=== PATIENT | male | born 1935 | race Caucasian/White ===

== ENCOUNTER 2022-05-25 16:50 | Observation (INO) | payer MEDICARE ==
[~2022-05-25] VITALS: Ht 167.6 cm; Wt 49.6 kg
[~2022-05-25 16:50] MED LIST changes: -FLUT1DIS5 INH; -TIOT18 INH
[2022-05-25 17:14] LABS: BASOPHILS ABSOLUTE AUTO 0.04 K/mm3 (0.00-0.23); BASOPHILS PERCENT AUTO 1 % (0-2); EOSINOPHILS PERCENT AUTO 0 % (0-6); Hematocrit 44.9 % (37.0-53.0); Hemoglobin 15.3 g/dL (13.5-17.5); IMMATURE GRAN ABSOLUTE AUTO 0.05 K/mm3 (0.00-0.10); IMMATURE GRAN PERCENT AUTO 1 % (0-1); LYMPHOCYTES ABSOLUTE AUTO 0.39 K/mm3 (0.84-5.20); LYMPHOCYTES PERCENT AUTO 6 % (21-46); MONOCYTES ABSOLUTE AUTO 0.48 K/mm3 (0.16-1.47); MONOCYTES PERCENT AUTO 7 % (4-13); Mean Corpuscular HGB 32.3 pg (26.0-34.0); Mean Corpuscular HGB Conc 34.1 g/dL (31.5-36.5); Mean Corpuscular Volume 95 fL (80-100); Mean Platelet Volume 8.6 fL (9.1-12.4); NEUTROPHILS ABSOLUTE AUTO 5.73 K/mm3 (1.96-9.15); NEUTROPHILS PERCENT AUTO 86 % (41-73); Platelet Count 386 K/mm3 (150-400); RDW Coefficient Variation 12.9 % (11.7-14.2); RDW Standard Deviation 45.7 fL (35.1-46.3); Red Blood Cell Count 4.74 M/mm3 (4.30-5.90); White Blood Cell Count 6.69 K/mm3 (4.00-11.30)
[2022-05-25 17:33] LABS: Albumin, Blood 2.7 g/dL (3.4-5.0); Albumin/Globulin Ratio 0.6 (0.8-1.8); Bilirubin, Total 0.7 mg/dL (0.1-1.0); Bun/Creatinine Ratio 37.7 (12.0-20.0); Calcium, Blood 9.4 mg/dL (8.5-10.1); Creatinine, Blood 0.69 mg/dL (0.60-1.20); Globulin, Blood 4.7 g/dL (2.2-4.0); Potassium, Blood 4.2 mmol/L (3.5-5.5); Total Protein, Blood 7.4 g/dL (6.4-8.2)
[2022-05-25] MEDS ORDERED: TIOT18 INH (23:16)
[2022-05-25] MEDS ORDERED: FLUT1DIS5 INH (23:18)
[2022-05-26 04:57] LABS: BASOPHILS ABSOLUTE AUTO 0.02 K/mm3 (0.00-0.23); BASOPHILS PERCENT AUTO 0 % (0-2); EOSINOPHILS PERCENT AUTO 0 % (0-6); Hemoglobin 13.5 g/dL (13.5-17.5); IMMATURE GRAN ABSOLUTE AUTO 0.03 K/mm3 (0.00-0.10); IMMATURE GRAN PERCENT AUTO 1 % (0-1); LYMPHOCYTES ABSOLUTE AUTO 0.58 K/mm3 (0.84-5.20); LYMPHOCYTES PERCENT AUTO 11 % (21-46); MONOCYTES ABSOLUTE AUTO 0.36 K/mm3 (0.16-1.47); MONOCYTES PERCENT AUTO 7 % (4-13); Mean Corpuscular HGB 31.9 pg (26.0-34.0); Mean Corpuscular HGB Conc 33.8 g/dL (31.5-36.5); Mean Corpuscular Volume 95 fL (80-100); Mean Platelet Volume 9.2 fL (9.1-12.4); NEUTROPHILS ABSOLUTE AUTO 4.56 K/mm3 (1.96-9.15); NEUTROPHILS PERCENT AUTO 82 % (41-73); Platelet Count 387 K/mm3 (150-400); RDW Standard Deviation 44.5 fL (35.1-46.3); Red Blood Cell Count 4.23 M/mm3 (4.30-5.90); White Blood Cell Count 5.55 K/mm3 (4.00-11.30)
--- NOTE | 2022-05-26 05:01 | NUR ---
PT ARRIVED TO UNIT AT 2300, PT ORIENTED TO ROOM AND CALL LIGHT, AXOX4, [place]. 3L NC. PT SLEEPING MOST OF SHIFT
[2022-05-26 17:07] LABS: Albumin, Blood 2.1 g/dL (3.4-5.0); Albumin/Globulin Ratio 0.5 (0.8-1.8); Bilirubin, Total 0.5 mg/dL (0.1-1.0); Bun/Creatinine Ratio 34.8 (12.0-20.0); Calcium, Blood 8.9 mg/dL (8.5-10.1); Creatinine, Blood 0.72 mg/dL (0.60-1.20); Globulin, Blood 4.2 g/dL (2.2-4.0); Potassium, Blood 4.3 mmol/L (3.5-5.5); Total Protein, Blood 6.3 g/dL (6.4-8.2)
--- NOTE | 2022-05-27 05:20 | NUR ---
SHIFT SUMMARY PT SITTING UP IN BED WATCHING TV- PT DENIES PAIN AND REPORTS THAT HIS BREATHING IS GETTING BETTER- PT AMBULATED WITH FWW TO HALLWAY AND BACK- PT SOB- PT RECOVERED WITHING 1 MINUTE OF RETURING TO BED- ABX INFUSED IN THE NIGHT- BED LOW POSITION, CALL LIGHT WITHIN REACH, BED ALARM IN PLACE
[2022-05-27] MEDS ORDERED: AZIT250 PO (14:17)
[2022-05-27] MEDS ORDERED: Prednisone10 MG PO (14:17)
--- NOTE | 2022-05-27 17:40 | NUR ---
PATIENT DISCHARGED TO HOME ACCOMPANIED BY HIS DAUGHTER. IV SALINE LOCK AND TELEMETRY REMOVED WITHOUT INCIDENT. VERBALIZED UNDERSTANDING OF D/C INSTRUCTIONS. NEW [facility] FOUR WHEEL WALKER FOR HOME ALSO DELIVERED TO ROOM PRIOR TO DISCHARGE. HOME O2 EVAL RESULTS SHOWED 2 L/MIN AT REST AND 4 L/MIN WITH ACTIVITY, RESULTS SHARED WITH PATIENT AND DAUGHTER. OFF UNIT VIA W/C AT 1730. NO BELONGINGS LEFT BEHIND IN ROOM.
== END 2022-05-27 17:32 | disposition home or self-care (01) ==
LOC: ER 16:50 → MEDS 16:51
PROVIDERS: Emergency Medicine; Internal Medicine; ADMIT Internal Medicine
DX: J44.1 Chronic obstructive pulmonary disease with (acute) exacerbation (principal); J96.11 Chronic respiratory failure with hypoxia; Z99.81 Dependence on supplemental oxygen; Z79.899 Other long term (current) drug therapy
CPT/HCPCS: 36415; 71045; 71260; 80053; 83605; 83880; 84484; 85025; 85379; 87040; 93005; 93010; 94640; 94664; 94760; 94761; 96365-59; 96366; 96375; 96375-59; 96376; 99285-25; A9270; G0378; J0456; J0696; J2930; J7050; Q9967

== ENCOUNTER → 2022-05-25 | Outpatient (CLI) | payer MEDICARE ==
[~2022-05-25] MED LIST: ALBU90OI INH; FLUT1DIS5 INH; TIOT18 INH
[2022-05-25 15:00] LABS: BASOPHILS ABSOLUTE AUTO 0.05 K/mm3 (0.00-0.23); BASOPHILS PERCENT AUTO 1 % (0-2); EOSINOPHILS ABSOLUTE AUTO 0.01 K/mm3 (0.00-0.68); EOSINOPHILS PERCENT AUTO 0 % (0-6); Hematocrit 44.2 % (37.0-53.0); Hemoglobin 15.1 g/dL (13.5-17.5); IMMATURE GRAN ABSOLUTE AUTO 0.05 K/mm3 (0.00-0.10); IMMATURE GRAN PERCENT AUTO 1 % (0-1); LYMPHOCYTES ABSOLUTE AUTO 0.59 K/mm3 (0.84-5.20); LYMPHOCYTES PERCENT AUTO 7 % (21-46); MONOCYTES ABSOLUTE AUTO 1.28 K/mm3 (0.16-1.47); MONOCYTES PERCENT AUTO 16 % (4-13); Mean Corpuscular HGB 32.3 pg (26.0-34.0); Mean Corpuscular HGB Conc 34.2 g/dL (31.5-36.5); Mean Corpuscular Volume 94 fL (80-100); Mean Platelet Volume 8.8 fL (9.1-12.4); NEUTROPHILS PERCENT AUTO 76 % (41-73); Platelet Count 371 K/mm3 (150-400); RDW Standard Deviation 44.7 fL (35.1-46.3); Red Blood Cell Count 4.68 M/mm3 (4.30-5.90); White Blood Cell Count 8.18 K/mm3 (4.00-11.30)
[2022-05-25 15:10] LABS: Albumin, Blood 2.8 g/dL (3.4-5.0); Albumin/Globulin Ratio 0.6 (0.8-1.8); Bilirubin, Total 0.7 mg/dL (0.1-1.0); Bun/Creatinine Ratio 28.3 (12.0-20.0); Calcium, Blood 9.8 mg/dL (8.5-10.1); Creatinine, Blood 0.99 mg/dL (0.60-1.20); Globulin, Blood 4.8 g/dL (2.2-4.0); Potassium, Blood 4.2 mmol/L (3.5-5.5); Total Protein, Blood 7.6 g/dL (6.4-8.2)
== END | disposition home or self-care (01) ==
LOC: LAB SHORT 14:51
PROVIDERS: Chiropractor
DX: R06.00 Dyspnea, unspecified (principal)
CPT/HCPCS: 80053; 84484; 85025; 85379

== ENCOUNTER 2022-12-06 14:17 | Emergency (ER) | payer MEDICARE ==
[~2022-12-06] VITALS: Ht 170.2 cm; Wt 48.1 kg
[~2022-12-06 14:17] MED LIST changes: +AZIT250 PO; +FLUT1DIS5 INH; +Prednisone10 MG PO; +TIOT18 INH
[2022-12-06 15:56] LABS: Influenza A, PCR NEGATIVE (NEGATIVE); Influenza B, PCR NEGATIVE (NEGATIVE); Resp Syncytial Virus, PCR NEGATIVE (NEGATIVE); SARS-Cov-2 (COVID-19) PCR, MMC NEGATIVE (NEGATIVE)
[2022-12-06 16:15] LABS: BASOPHILS ABSOLUTE AUTO 0.06 K/mm3 (0.00-0.23); BASOPHILS PERCENT AUTO 1 % (0-2); EOSINOPHILS ABSOLUTE AUTO 0.17 K/mm3 (0.00-0.68); EOSINOPHILS PERCENT AUTO 2 % (0-6); IMMATURE GRAN ABSOLUTE AUTO 0.02 K/mm3 (0.00-0.10); IMMATURE GRAN PERCENT AUTO 0 % (0-1); LYMPHOCYTES ABSOLUTE AUTO 1.74 K/mm3 (0.84-5.20); LYMPHOCYTES PERCENT AUTO 17 % (21-46); MONOCYTES PERCENT AUTO 6 % (4-13); Mean Corpuscular HGB Conc 32.5 g/dL (31.5-36.5); Mean Corpuscular Volume 86 fL (80-100); Mean Platelet Volume 8.6 fL (9.1-12.4); NEUTROPHILS PERCENT AUTO 74 % (41-73); Platelet Count 438 K/mm3 (150-400); RDW Coefficient Variation 15.2 % (11.7-14.2); RDW Standard Deviation 47.2 fL (35.1-46.3); Red Blood Cell Count 4.64 M/mm3 (4.30-5.90); White Blood Cell Count 9.99 K/mm3 (4.00-11.30)
[2022-12-06 16:36] LABS: Albumin, Blood 3.1 g/dL (3.4-5.0); Albumin/Globulin Ratio 0.7 (0.8-1.8); Bilirubin, Total 0.4 mg/dL (0.1-1.0); Bun/Creatinine Ratio 17.6 (12.0-20.0); Calcium, Blood 9.3 mg/dL (8.5-10.1); Creatinine, Blood 0.68 mg/dL (0.60-1.20); Globulin, Blood 4.4 g/dL (2.2-4.0); Potassium, Blood 4.8 mmol/L (3.5-5.5); Total Protein, Blood 7.5 g/dL (6.4-8.2)
[2022-12-06 19:14] LABS: Magnesium, Blood 2.2 mg/dL (1.6-2.4); Phosphorus, Blood 3.1 mg/dL (2.5-4.9)
[2022-12-06 20:45] VITALS: BP 147/97
[2022-12-06] MEDS ORDERED: Doxycycline Mo100 M1 PO (21:41)
[2022-12-06] MEDS ORDERED: AMOCLA875 PO (21:41)
== END 2022-12-06 22:51 | disposition home or self-care (01) ==
LOC: ER 14:17
PROVIDERS: Emergency Medicine; Physician Assistant
DX: J21.9 Acute bronchiolitis, unspecified (principal); J44.0 Chronic obstructive pulmonary disease with (acute) lower respiratory infection; Z87.891 Personal history of nicotine dependence; Z20.822 Contact with and (suspected) exposure to COVID-19
CPT/HCPCS: 0241U; 71046; 71260; 80053; 83735; 83880; 84100; 84145; 84484; 85025; 85379; 93005; 93010; 94640; 94664; 99284-25; A9270; Q9967

== ENCOUNTER 2023-01-01 14:34 | Emergency (ER) | payer MEDICARE ==
[~2023-01-01] VITALS: Ht 170.2 cm; Wt 48.1 kg
[~2023-01-01 14:34] MED LIST changes: +AMOCLA875 PO; +Doxycycline Mo100 M1 PO
[2023-01-01 15:20] LABS: BASOPHILS ABSOLUTE AUTO 0.07 K/mm3 (0.00-0.23); BASOPHILS PERCENT AUTO 1 % (0-2); EOSINOPHILS ABSOLUTE AUTO 0.16 K/mm3 (0.00-0.68); EOSINOPHILS PERCENT AUTO 2 % (0-6); Hematocrit 39.7 % (37.0-53.0); Hemoglobin 12.3 g/dL (13.5-17.5); IMMATURE GRAN ABSOLUTE AUTO 0.06 K/mm3 (0.00-0.10); IMMATURE GRAN PERCENT AUTO 1 % (0-1); LYMPHOCYTES ABSOLUTE AUTO 2.03 K/mm3 (0.84-5.20); LYMPHOCYTES PERCENT AUTO 20 % (21-46); MONOCYTES ABSOLUTE AUTO 0.66 K/mm3 (0.16-1.47); MONOCYTES PERCENT AUTO 7 % (4-13); Mean Corpuscular HGB 27.5 pg (26.0-34.0); Mean Corpuscular Volume 89 fL (80-100); NEUTROPHILS ABSOLUTE AUTO 7.01 K/mm3 (1.96-9.15); NEUTROPHILS PERCENT AUTO 70 % (41-73); RDW Coefficient Variation 15.9 % (11.7-14.2); RDW Standard Deviation 51.5 fL (35.1-46.3); Red Blood Cell Count 4.48 M/mm3 (4.30-5.90); White Blood Cell Count 9.99 K/mm3 (4.00-11.30)
[2023-01-01 15:40] LABS: Albumin, Blood 2.2 g/dL (3.4-5.0); Albumin/Globulin Ratio 0.5 (0.8-1.8); Bilirubin, Total 0.4 mg/dL (0.1-1.0); Bun/Creatinine Ratio 21.5 (12.0-20.0); Calcium, Blood 8.5 mg/dL (8.5-10.1); Creatinine, Blood 0.65 mg/dL (0.60-1.20); Globulin, Blood 4.4 g/dL (2.2-4.0); Potassium, Blood 5.1 mmol/L (3.5-5.5); Total Protein, Blood 6.6 g/dL (6.4-8.2)
[2023-01-01 15:48] LABS: Mean Platelet Volume 9.5 fL (9.1-12.4); Platelet Count 324 K/mm3 (150-400)
[2023-01-01 17:56] LABS: Source, Urine Foley catheter
[2023-01-01 18:02] LABS: Appearance, Urine Cloudy (Clear); Bilirubin, Urine Neg (Neg); Blood, Urine 5+ (Neg); Color, Urine Yellow (P-Yellow); Glucose Qualitative, Urine Neg (Neg); Ketones, Urine Neg (Neg); Leukocyte Esterase, Urine 3+ (Neg); Nitrite, Urine Pos (Neg); Protein, Urine 2+ (Neg); Urobilinogen, Urine NORM (Normal)
[2023-01-01 18:08] LABS: Amorphous Light (0-Heavy); Bacteria Many /hpf; Hyaline Casts 0-2 /lpf (0-2); Squamous Epithelial Cells Not Seen /hpf (Few)
[2023-01-01] MEDS ORDERED: CEFD300 PO (18:22)
[2023-01-01 19:30] VITALS: BP 145/99
== END 2023-01-01 20:00 | disposition home or self-care (01) ==
LOC: ER 14:34
PROVIDERS: Emergency Medicine
DX: N39.0 Urinary tract infection, site not specified (principal); J44.9 Chronic obstructive pulmonary disease, unspecified; Z79.899 Other long term (current) drug therapy; Z87.891 Personal history of nicotine dependence; Z96.0 Presence of urogenital implants; Z99.81 Dependence on supplemental oxygen
CPT/HCPCS: 51702; 71046; 80053; 81001; 83880; 84484; 85025; 87077; 87086; 87186; 93005; 93010; 96365; 99285-25; J0696

== ENCOUNTER → 2023-02-12 | Outpatient (CLI) | payer MEDICARE ==
[~2023-02-12] MED LIST changes: +CEFD300 PO; +CEFP200 PO; +DIGOX125 MC1 PO; +FLUTICASONE-SA1 EA10 INH; +LEVO750 PO; +METO25ER PO; +TAMS.4ER PO
[2023-02-12 18:02] LABS: BASOPHILS ABSOLUTE AUTO 0.05 K/mm3 (0.00-0.23); BASOPHILS PERCENT AUTO 1 % (0-2); EOSINOPHILS ABSOLUTE AUTO 0.13 K/mm3 (0.00-0.68); EOSINOPHILS PERCENT AUTO 1 % (0-6); Hematocrit 38.7 % (37.0-53.0); Hemoglobin 12.4 g/dL (13.5-17.5); IMMATURE GRAN ABSOLUTE AUTO 0.05 K/mm3 (0.00-0.10); IMMATURE GRAN PERCENT AUTO 1 % (0-1); LYMPHOCYTES ABSOLUTE AUTO 1.62 K/mm3 (0.84-5.20); LYMPHOCYTES PERCENT AUTO 18 % (21-46); MONOCYTES ABSOLUTE AUTO 0.69 K/mm3 (0.16-1.47); MONOCYTES PERCENT AUTO 8 % (4-13); Mean Corpuscular HGB 27.8 pg (26.0-34.0); Mean Corpuscular Volume 87 fL (80-100); Mean Platelet Volume 8.8 fL (9.1-12.4); NEUTROPHILS ABSOLUTE AUTO 6.61 K/mm3 (1.96-9.15); NEUTROPHILS PERCENT AUTO 72 % (41-73); Platelet Count 363 K/mm3 (150-400); RDW Standard Deviation 53.7 fL (35.1-46.3); Red Blood Cell Count 4.46 M/mm3 (4.30-5.90); White Blood Cell Count 9.15 K/mm3 (4.00-11.30)
[2023-02-12 18:38] LABS: Albumin, Blood 2.7 g/dL (3.4-5.0); Albumin/Globulin Ratio 0.7 (0.8-1.8); Bilirubin, Total 0.4 mg/dL (0.1-1.0); Bun/Creatinine Ratio 16.1 (12.0-20.0); Calcium, Blood 8.5 mg/dL (8.5-10.1); Creatinine, Blood 0.81 mg/dL (0.60-1.20); Globulin, Blood 4.1 g/dL (2.2-4.0); Potassium, Blood 4.2 mmol/L (3.5-5.5); Total Protein, Blood 6.8 g/dL (6.4-8.2)
== END ==
LOC: LAB SHORT 16:45 → LAB 16:45
PROVIDERS: Emergency Medicine
DX: N39.0 Urinary tract infection, site not specified (principal); R31.9 Hematuria, unspecified
CPT/HCPCS: 80053; 85025; 87086

== ENCOUNTER 2023-02-14 13:24 | Emergency (ER) | payer MEDICARE ==
[~2023-02-14] VITALS: Ht 167.6 cm; Wt 65.8 kg
[~2023-02-14 13:24] MED LIST changes: -CEFP200 PO
[2023-02-14 13:31] VITALS: BP 152/81
[2023-02-14 14:33] LABS: Source, Urine Foley catheter
[2023-02-14 14:36] LABS: Appearance, Urine Cloudy (Clear); Bilirubin, Urine Neg (Neg); Blood, Urine 3+ (Neg); Color, Urine Yellow (P-Yellow); Glucose Qualitative, Urine Neg (Neg); Ketones, Urine Neg (Neg); Leukocyte Esterase, Urine 3+ (Neg); Nitrite, Urine Neg (Neg); Protein, Urine 2+ (Neg); Specific Gravity, Urine 1.015 (1.003-1.022); Urobilinogen, Urine NORM (Normal)
[2023-02-14 15:14] LABS: White Blood Cells, Urine TNTC /hpf (0-5); Yeast/Fungi Urine Few /hpf
[2023-02-14 15:15] LABS: Bacteria Many /hpf; Squamous Epithelial Cells Not Seen /hpf (Few)
[2023-02-14] MEDS ORDERED: CEFP200 PO (15:47)
== END 2023-02-14 16:06 | disposition home or self-care (01) ==
LOC: ER 13:24
PROVIDERS: Student in an Organized Health Care Education/Training Program
DX: T83.518A Infection and inflammatory reaction due to other urinary catheter, initial encounter (principal); N39.0 Urinary tract infection, site not specified; Y73.2 Prosthetic and other implants, materials and accessory gastroenterology and urology devices associated with adverse incidents; J44.9 Chronic obstructive pulmonary disease, unspecified; Z87.891 Personal history of nicotine dependence; Z79.51 Long term (current) use of inhaled steroids; Z79.52 Long term (current) use of systemic steroids; Z79.899 Other long term (current) drug therapy
CPT/HCPCS: 51702; 51798; 81001; 87086; 99283-25

== ENCOUNTER 2024-01-12 16:40 | Emergency (ER) | payer MEDICARE ==
[~2024-01-12] VITALS: Ht 170.2 cm; Wt 51.7 kg
[~2024-01-12 16:40] MED LIST changes: +CEFP200 PO
[2024-01-12] MEDS ORDERED: Ipratropium/Albuterol SulF 2.5-0.5MG/3 ML Amp INH ONE (17:40)
[2024-01-12] MEDS ORDERED: MethylPREDNISolone Sod Succ 125 MG Vial IV ONE (17:40)
[2024-01-12 18:02] LABS: BASOPHILS ABSOLUTE AUTO 0.08 K/mm3 (0.00-0.23); BASOPHILS PERCENT AUTO 1 % (0-2); EOSINOPHILS ABSOLUTE AUTO 0.07 K/mm3 (0.00-0.68); EOSINOPHILS PERCENT AUTO 1 % (0-6); Hematocrit 39.6 % (37.0-53.0); Hemoglobin 12.6 g/dL (13.5-17.5); IMMATURE GRAN ABSOLUTE AUTO 0.07 K/mm3 (0.00-0.10); IMMATURE GRAN PERCENT AUTO 1 % (0-1); LYMPHOCYTES ABSOLUTE AUTO 4.64 K/mm3 (0.84-5.20); LYMPHOCYTES PERCENT AUTO 31 % (21-46); MONOCYTES ABSOLUTE AUTO 0.86 K/mm3 (0.16-1.47); MONOCYTES PERCENT AUTO 6 % (4-13); Mean Corpuscular HGB 27.4 pg (26.0-34.0); Mean Corpuscular HGB Conc 31.8 g/dL (31.5-36.5); Mean Corpuscular Volume 86 fL (80-100); Mean Platelet Volume 8.6 fL (9.1-12.4); NEUTROPHILS ABSOLUTE AUTO 9.18 K/mm3 (1.96-9.15); NEUTROPHILS PERCENT AUTO 62 % (41-73); Platelet Count 492 K/mm3 (150-400); RDW Coefficient Variation 15.3 % (11.7-14.2); RDW Standard Deviation 48.5 fL (35.1-46.3)
[2024-01-12 18:20] LABS: Albumin, Blood 2.8 g/dL (3.4-5.0); Albumin/Globulin Ratio 0.7 (0.8-1.8); Bilirubin, Total 0.3 mg/dL (0.1-1.0); Bun/Creatinine Ratio 17.2 (12.0-20.0); Calcium, Blood 8.6 mg/dL (8.5-10.1); Creatinine, Blood 0.76 mg/dL (0.60-1.20); Globulin, Blood 4.1 g/dL (2.2-4.0); Total Protein, Blood 6.9 g/dL (6.4-8.2)
[2024-01-12 19:09] LABS: Source, Urine Clean Catch
[2024-01-12 19:14] LABS: Appearance, Urine Hazy (Clear); Bilirubin, Urine Neg (Neg); Blood, Urine 3+ (Neg); Color, Urine Yellow (P-Yellow); Glucose Qualitative, Urine Neg (Neg); Ketones, Urine Neg (Neg); Leukocyte Esterase, Urine 3+ (Neg); Nitrite, Urine Pos (Neg); Protein, Urine 2+ (Neg); Specific Gravity, Urine 1.015 (1.003-1.022); Urobilinogen, Urine NORM (Normal); pH, Urine 6.5 (5.0-8.0)
[2024-01-12 19:25] LABS: Amorphous Light (0-Heavy); Bacteria Many /hpf; Squamous Epithelial Cells Few /hpf (Few); White Blood Cells, Urine 25-50 /hpf (0-5)
[2024-01-12] MEDS ORDERED: CefTRIAXone Sodium 1,000 MG in NS 100 ML IV ONE (21:15)
[2024-01-12] MEDS ORDERED: Azithromycin 250 MG Tab PO ONE (21:20)
[2024-01-12 22:00] VITALS: BP 138/74
[2024-01-12] MEDS ORDERED: AMOCLA875 PO (22:12)
[2024-01-12] MEDS ORDERED: AZIT250 PO (22:12)
[2024-01-12] MEDS ORDERED: LEVAQUIN750 MG PO (22:26)
== END 2024-01-12 22:40 | disposition home or self-care (01) ==
LOC: ER 16:40
PROVIDERS: Student in an Organized Health Care Education/Training Program
DX: J18.9 Pneumonia, unspecified organism (principal); J44.9 Chronic obstructive pulmonary disease, unspecified; Z87.891 Personal history of nicotine dependence; Z79.51 Long term (current) use of inhaled steroids; Z79.899 Other long term (current) drug therapy; Z79.52 Long term (current) use of systemic steroids
CPT/HCPCS: 71046; 71260; 80053; 81001; 83880; 84484; 85025; 85379; 93005; 93010; 94640; 94664; 96374; 96375; 99285-25; A9270; J0696; J2919; Q9967

== ENCOUNTER 2024-02-23 16:29 | Inpatient (IN) | payer MEDICARE ==
[~2024-02-23] VITALS: Ht 170.2 cm; Wt 49.8 kg
[~2024-02-23 16:29] MED LIST changes: +LEVAQUIN750 MG PO
[2024-02-23] MEDS ORDERED: PRED5 PO (17:34)
[2024-02-23] MEDS ORDERED: TIOT18 INH (17:36)
[2024-02-23] MEDS ORDERED: FLUT1DIS8 (17:36)
[2024-02-23 18:00] LABS: BASOPHILS ABSOLUTE AUTO 0.08 K/mm3 (0.00-0.23); BASOPHILS PERCENT AUTO 1 % (0-2); EOSINOPHILS ABSOLUTE AUTO 0.18 K/mm3 (0.00-0.68); EOSINOPHILS PERCENT AUTO 1 % (0-6); Hematocrit 39.1 % (37.0-53.0); Hemoglobin 12.3 g/dL (13.5-17.5); IMMATURE GRAN ABSOLUTE AUTO 0.04 K/mm3 (0.00-0.10); IMMATURE GRAN PERCENT AUTO 0 % (0-1); LYMPHOCYTES ABSOLUTE AUTO 2.53 K/mm3 (0.84-5.20); LYMPHOCYTES PERCENT AUTO 19 % (21-46); MONOCYTES PERCENT AUTO 4 % (4-13); Mean Corpuscular HGB 27.6 pg (26.0-34.0); Mean Corpuscular HGB Conc 31.5 g/dL (31.5-36.5); Mean Corpuscular Volume 88 fL (80-100); Mean Platelet Volume 8.1 fL (9.1-12.4); NEUTROPHILS ABSOLUTE AUTO 10.26 K/mm3 (1.96-9.15); NEUTROPHILS PERCENT AUTO 75 % (41-73); Platelet Count 532 K/mm3 (150-400); RDW Coefficient Variation 15.2 % (11.7-14.2); RDW Standard Deviation 48.4 fL (35.1-46.3); Red Blood Cell Count 4.46 M/mm3 (4.30-5.90); White Blood Cell Count 13.69 K/mm3 (4.00-11.30)
[2024-02-23 18:25] LABS: Albumin, Blood 2.5 g/dL (3.4-5.0); Albumin/Globulin Ratio 0.6 (0.8-1.8); Bilirubin, Total 0.3 mg/dL (0.1-1.0); Bun/Creatinine Ratio 19.5 (12.0-20.0); Calcium, Blood 8.5 mg/dL (8.5-10.1); Creatinine, Blood 0.72 mg/dL (0.60-1.20); Globulin, Blood 4.3 g/dL (2.2-4.0); Potassium, Blood 3.7 mmol/L (3.5-5.5); Total Protein, Blood 6.8 g/dL (6.4-8.2)
[2024-02-23] MEDS ORDERED: Ipratropium/Albuterol SulF 2.5-0.5MG/3 ML Amp INH ONE (19:10)
[2024-02-23] MEDS ORDERED: MethylPREDNISolone Sod Succ 125 MG Vial IV ONE (19:15)
[2024-02-23] MEDS ORDERED: Azithromycin 500 MG in NS 250 ML IV SCH (20:30)
[2024-02-23] MEDS ORDERED: Ondansetron HCl 2 MG / ML 2ML Vial IV PRN (20:55)
[2024-02-23] MEDS ORDERED: Ipratropium/Albuterol SulF 2.5-0.5MG/3 ML Amp INH SCH (20:55)
[2024-02-23] MEDS ORDERED: Albuterol 2.5 MG/3 ML VIAL INH PRN (21:00)
[2024-02-23] MEDS ORDERED: FLU VACC TS2024-25(6MOS UP)/PF 45 MCG/0.5 ML SYRINGE IM SCH (21:00)
[2024-02-23 21:50] LABS: PCO2 Venous 43.7 mmHg (38-42); pH Blood Venous 7.38 (7.34-7.37)
[2024-02-23 21:51] LABS: Base Excess Venous 0.8 mmol/L; Bicarbonate Venous 24.6 mmol/L (24.0-30.0)
[2024-02-23 22:57] VITALS: BP 120/94
[2024-02-24] MEDS ORDERED: MethylPREDNISolone Sod Succ 125 MG Vial IV SCH
[2024-02-24 04:25] VITALS: BP 141/87
[2024-02-24 04:51] LABS: BASOPHILS ABSOLUTE AUTO 0.01 K/mm3 (0.00-0.23); BASOPHILS PERCENT AUTO 0 % (0-2); EOSINOPHILS PERCENT AUTO 0 % (0-6); Hematocrit 35.5 % (37.0-53.0); Hemoglobin 11.5 g/dL (13.5-17.5); IMMATURE GRAN ABSOLUTE AUTO 0.04 K/mm3 (0.00-0.10); IMMATURE GRAN PERCENT AUTO 1 % (0-1); LYMPHOCYTES PERCENT AUTO 13 % (21-46); MONOCYTES ABSOLUTE AUTO 0.07 K/mm3 (0.16-1.47); MONOCYTES PERCENT AUTO 1 % (4-13); Mean Corpuscular HGB 27.8 pg (26.0-34.0); Mean Corpuscular HGB Conc 32.4 g/dL (31.5-36.5); Mean Corpuscular Volume 86 fL (80-100); Mean Platelet Volume 8.3 fL (9.1-12.4); NEUTROPHILS ABSOLUTE AUTO 6.13 K/mm3 (1.96-9.15); NEUTROPHILS PERCENT AUTO 86 % (41-73); Platelet Count 515 K/mm3 (150-400); RDW Coefficient Variation 14.9 % (11.7-14.2); RDW Standard Deviation 46.9 fL (35.1-46.3); Red Blood Cell Count 4.13 M/mm3 (4.30-5.90); White Blood Cell Count 7.15 K/mm3 (4.00-11.30)
[2024-02-24 05:13] LABS: Albumin, Blood 2.4 g/dL (3.4-5.0); Albumin/Globulin Ratio 0.6 (0.8-1.8); Bilirubin, Total 0.4 mg/dL (0.1-1.0); Bun/Creatinine Ratio 17.7 (12.0-20.0); Creatinine, Blood 0.68 mg/dL (0.60-1.20); Globulin, Blood 3.7 g/dL (2.2-4.0); Magnesium, Blood 1.9 mg/dL (1.6-2.4); Potassium, Blood 4.3 mmol/L (3.5-5.5); Total Protein, Blood 6.1 g/dL (6.4-8.2)
--- NOTE | 2024-02-24 05:57 | NUR ---
SHIFT SUMMARY PT XFER FROM ER. PT ALERT AND ORIENTED TIMES 3-4. PT WAS RECEPTIVE TO CARE TONIGHT. PT ON 4-5 L O2. BASELINE IS 1-3 AT HOME. PT HAS CHRONIC LEBLANC. PT APPEARED TO SLEEP ON AND OFF THROUGH NIGHT. BED IN LOW POSITION, CALL LIGHT WITHIN REACH, RAILS TIMES 2.
[2024-02-24] MEDS ORDERED: Enoxaparin 40 MG/0.4 ML SYR SC SCH (09:00)
[2024-02-24] MEDS ORDERED: Tamsulosin HCl 0.4 MG Cap PO SCH (09:00)
[2024-02-24 14:57] VITALS: BP 116/77
--- NOTE | 2024-02-24 17:07 | NUR ---
SHIFT SUMMARY PT A&OX4, VSS, ON 4L O2 NC, AMB W/1-2P ASSIST TO THE BSC, MINIMAL PO INTAKE, AND DENIED PAIN. NO OTHER ACUTE CHANGES. CALL LIGHT WITHIN REACH AND PT ABLE TO MAKE NEEDS KNOWN.
[2024-02-24 20:10] VITALS: BP 131/78
[2024-02-24] MEDS ORDERED: Lactobacil 2-S.Thermo-Bifido 1 1 Cap PO SCH (21:00)
[2024-02-25 02:33] VITALS: BP 138/82
--- NOTE | 2024-02-25 06:13 | NUR ---
SHIFT SUMMARY PT VERY HARD OF HEARING EVEN WITH SERA. HEARING AIDS. SOB WITH ANY TALKING OR SMALL ACTIVITY. PT STAYED IN BED THROUGH THE NIGHT. OCCASSIONAL MOIST COUGHT. 4LNC MAINTAINED WITH SATS >92%. HEART RATE ELEVATED IN THE 100-110'S LAST NIGHT, HEART RATE PER CONTINUOUS PULSE OX IN THE 80-90'S WHEN PT SLEEPING. IV STEROIDS CONTINUED. CHRONIC LEBLANC DRAINING YELLOW URINE WITH SEDIMENT. PT SLEPT ON/OFF THROUGH THE NIGHT. BED IN LOWEST POSITION, CALL LIGHT WITHIN REACH, SIDE RAILS UP X3.
[2024-02-25 07:52] VITALS: BP 152/96
[2024-02-25] MEDS ORDERED: Mometasone/Formoterol MDI 200/5 mcg 13 GM INH SCH (14:30)
[2024-02-25 15:33] VITALS: BP 127/91
[2024-02-25] MEDS ORDERED: MethylPREDNISolone Sod Succ 125 MG Vial IV SCH ×2 (16:00→20:00)
--- NOTE | 2024-02-25 18:05 | NUR ---
SHIFT SUMMARY PT FLUID INTAKE IMPROVED THIS SHIFT. PT REMAINS ON 4L O2 NC. NO OTHER ACUTE CHANGES. CALL LIGHT WITHIN REACH AND PT ABLE TO MAKE NEEDS KNOWN.
[2024-02-25 19:47] VITALS: BP 137/96
[2024-02-26 03:44] VITALS: BP 167/89
--- NOTE | 2024-02-26 04:55 | NUR ---
SHIFT SUMMARY PT A&O, BUT FORGETFUL AND VERY STILLAGUAMISH EVEN WITH HEARING AIDS. PT CONTINUES ON 4LNC AND HAS A STRONGER COUGH EFFORT THAN YESTERDAY. SOB WITH ACTIVITY. IV STEROIDS AND ANTIBIOTICS PER EMAR. PT TURNED AND REPOSITIONED Q 2HRS. FOAM DRESSING INTACT TO SACRUM. EGG CRATE MATTRESS PLACED ON BED LAST EVENING. BED IN LOWEST POSITION, CALL LIGHT WITHIN REACH, SIDE RAILS UP X2.
[2024-02-26 07:41] VITALS: BP 155/86
[2024-02-26] MEDS ORDERED: Metoprolol Succinate 25 MG TABCR PO SCH (09:00)
[2024-02-26] MEDS ORDERED: Digoxin 0.125 MG Tab PO SCH (09:00)
--- NOTE | 2024-02-26 11:25 | NUR ---
PER SCAR [place] TO D/C PULSE OXIMETER
[2024-02-26 15:27] VITALS: BP 126/77
--- NOTE | 2024-02-26 16:46 | NUR ---
SUMMARY NO ACUTE CHANGES THIS SHIFT. PT IS PLEASANT AND COOPERATIVE WITH ALL CARES. OXYGEN NEED IS STILL INCREASED WITH EXERTION, HOWEVER WORKED WITH PHYSICAL THERAPY TODAY AND DID VERY WELL OVERALL. DENIES CHEST PAIN OR PRESSURE. REPORTS FEELING BETTER TODAY THAN YESTERDAY. FAMILY CURRENTLY AT BEDSIDE VISITING. CORIE LEBLANC IN PLACE. PT IS VERY HARD OF HEARING.
[2024-02-26 20:21] VITALS: BP 133/88
[2024-02-26] MEDS ORDERED: MethylPREDNISolone Sod Succ 125 MG Vial IV SCH (21:00)
[2024-02-27 03:25] VITALS: BP 149/88
--- NOTE | 2024-02-27 04:56 | NUR ---
NOC SUMMARY- PT GETS SOB W/ MINIMAL EXERTION. PT REMAINS ON O2 VIA NC. PT HAS BEEN TURNING SELF IN BED. PT IS VERY HARD OF HEARING AND BECAME MORE CONFUSED DURING THE NIGHT. PT REDIRECTS WELL. PT LEBLANC DRAINING TO GRAVITY. CALL LIGHT IN REACH AND BED ALARM ON.
[2024-02-27 07:16] VITALS: BP 155/85
[2024-02-27 14:50] VITALS: BP 135/77
--- NOTE | 2024-02-27 18:33 | NUR ---
report received verified a/o pt quietly laying in bed no s/s of distress but doesnt want to be repositioned, pt stating he is just too tired, on 3L nc with wheezing throughout. attempted to get out of bed but refused just wants to sleep. RT at bedside.
--- NOTE | 2024-02-27 18:35 | NUR ---
pt done well thoughout day has refused to turn or transfer and just wants to rest today. o2 sat was 100% so i decreased to 2L nc and pt sustaind 97 to 100, no distress and is eating dinner. call light within reach and can make needs known
[2024-02-27 20:11] VITALS: BP 134/85
[2024-02-28 02:23] VITALS: BP 141/88
--- NOTE | 2024-02-28 06:28 | NUR ---
Rn shift summary: Patient is alert and oriented x4. He is very [place]. Patient has been resting well. He has been encouraged to turn and get off his back but he states he is "too tired" for us to turn him. Education is given. Pt states he is shifting his wt. Pt does have a reddened area on his coccyx with a mepilex. Pt is on 2 Liters O2. His breath sounds were tight with expiratory wheeze throughout. He feels he is improving since admit. Pt has chronic mares for retention. Yellow urine in bag. Denies pain except for IV in his R AC. IV removed. Pt will probably discharge today back to [facility] and no IV meds ordered until 2100 this evening. So IV was not replaced at this time. Call light is in reach.
[2024-02-28 07:40] VITALS: BP 153/93
[2024-02-28] MEDS ORDERED: PredniSONE 20 MG Tab PO SCH (09:00)
[2024-02-28] MEDS ORDERED: Enoxaparin 30 MG/0.3 ML SYR SC SCH (09:00)
[2024-02-28 15:58] VITALS: BP 134/87
--- NOTE | 2024-02-28 17:06 | NUR ---
SHIFT SUMMARY: SASKIA IS A&OX4. VSS, NO ACUTE EVENTS THIS SHIFT. PT RESTED COMFORTABLY WITH HIS EYES CLOSED AND SNORING RESPIRATIONS BETWEEN VISITS BY STAFF THIS MORNING, AND HAS BEEN MORE ALERT THIS AFTERNOON. LEBLANC PATENT, HE IS TOLERATING PO INTAKE WELL, ONE-PERSON ASSIST WITH THE FWW TO THE BATHROOM. PT HAD A BOWEL MOVEMENT TODAY. DISCUSSED PROBABLE DISCHARGE HOME TOMORROW WITH PT AND HIS DAUGHTER AT BEDSIDE. PT AND DAUGHTER VOICED NO RESERVATIONS OR CONCERNS AND STATED THAT PT HAS THE OPTION TO INCREASE CAREGIVER HOURS. DISCUSSED PT'S MOBILITY AND EDUCATED ON PREVENTION OF SKIN BREAKDOWN. PT MAINTAINING SATS ON 3L VIA NC, INCREASES TO 4L VIA NC DURING AMBULATION. PT IS ABLE TO TURN AND REPOSITION HIMSELF IN BED AND REPORTS FEELING SIGNIFICANTLY BETTER THAN ON ADMIT. HE IS LYING IN BED WITH THE CALL LIGHT IN REACH, BED IN LOWEST POSITION, LEBLANC COLLECTION BAG HANGING ABOVE FLOOR. WILL GIVE REPORT TO DAY SHIFT RN.
[2024-02-28 20:57] VITALS: BP 129/83
--- NOTE | 2024-02-29 04:23 | NUR ---
SHIFT SUMMARY 88 YR M ADMITTED ON 02/23/24. FULL CODE. NO ACUTE CHANGES THIS SHIFT. PT HAS HAD NO C/O PAIN OR DISCOMFORT THIS SHIFT. HE APPEARS TO HAVE SLEPT FOR MOST OF THE NIGHT HE COULD BE HEARD SNORING FROM THE HALLWAY. LEBLANC IS PATENT AND DRAINING WELL. BED IN LOW POSITION AND CALL LIGHT IN REACH.
[2024-02-29 05:47] VITALS: BP 168/98
[2024-02-29 08:00] VITALS: BP 157/90
[2024-02-29] MEDS ORDERED: PRED20 PO (13:56)
[2024-02-29] MEDS ORDERED: ALBU2.5V5 INH (13:56)
[2024-02-29 15:51] VITALS: BP 135/81
--- NOTE | 2024-02-29 17:36 | NUR ---
DISCHARGE INSTRUCTIONS DISCUSSED WITH PT AND HIS DAUGHTER, PRINTED COPY GIVEN. ALL PERSONAL BELONGINGS SENT HOME WITH PT. PT'S DAUGHTER BROUGHT PORTABLE OXYGEN TANK. PT TRANSPORTED TO PERSONAL VEHICLE VIA WHEELCHAIR. DAUGHTER PROVIDED TRANSPORTATION HOME. PT ABLE TO SELF-TRANSFER INTO VEHICLE.
== END 2024-02-29 16:52 | disposition home or self-care (01) | DRG 189 ==
LOC: ER 16:29 → MEDS 20:53 → ERHOLD 20:53 → MEDS 20:53
PROVIDERS: Nurse Practitioner Acute Care; Student in an Organized Health Care Education/Training Program; ADMIT Internal Medicine
DX: J96.21 Acute and chronic respiratory failure with hypoxia (principal); J44.1 Chronic obstructive pulmonary disease with (acute) exacerbation; N40.0 Benign prostatic hyperplasia without lower urinary tract symptoms; D64.9 Anemia, unspecified; D75.839 Thrombocytosis, unspecified; H91.90 Unspecified hearing loss, unspecified ear; Z87.891 Personal history of nicotine dependence; Z79.82 Long term (current) use of aspirin; Z79.51 Long term (current) use of inhaled steroids; Z79.899 Other long term (current) drug therapy; Z90.49 Acquired absence of other specified parts of digestive tract; Z98.52 Vasectomy status; Z99.81 Dependence on supplemental oxygen
CPT/HCPCS: 36415; 71046; 80053; 82803; 83735; 83880; 84484; 85025; 93005; 93010; 94640; 94664; 94760; 94762; 96374; 97110; 97162; 97530; 99285-25; A9270; J0456; J1650; J2919; J7050; J7512

== ENCOUNTER 2024-03-08 06:42 | Emergency (ER) | payer MEDICARE ==
[~2024-03-08] VITALS: Ht 170.2 cm; Wt 53.1 kg
[~2024-03-08 06:42] MED LIST changes: +ALBU2.5V5 INH; +FLUT1DIS8; +PRED20 PO; +PRED5 PO
[2024-03-08 08:35] LABS: BASOPHILS ABSOLUTE AUTO 0.03 K/mm3 (0.00-0.23); BASOPHILS PERCENT AUTO 0 % (0-2); EOSINOPHILS PERCENT AUTO 2 % (0-6); Hematocrit 34.7 % (37.0-53.0); Hemoglobin 11.1 g/dL (13.5-17.5); IMMATURE GRAN ABSOLUTE AUTO 0.08 K/mm3 (0.00-0.10); IMMATURE GRAN PERCENT AUTO 1 % (0-1); LYMPHOCYTES ABSOLUTE AUTO 1.65 K/mm3 (0.84-5.20); LYMPHOCYTES PERCENT AUTO 14 % (21-46); MONOCYTES ABSOLUTE AUTO 0.77 K/mm3 (0.16-1.47); MONOCYTES PERCENT AUTO 6 % (4-13); Mean Corpuscular HGB 27.8 pg (26.0-34.0); Mean Corpuscular Volume 87 fL (80-100); Mean Platelet Volume 8.8 fL (9.1-12.4); NEUTROPHILS PERCENT AUTO 78 % (41-73); Platelet Count 315 K/mm3 (150-400); RDW Standard Deviation 47.9 fL (35.1-46.3); Red Blood Cell Count 3.99 M/mm3 (4.30-5.90); White Blood Cell Count 12.13 K/mm3 (4.00-11.30)
[2024-03-08 08:54] LABS: Alanine Aminotransfer (ALT/SGP 19 U/L (12-78); Albumin, Blood 2.2 g/dL (3.4-5.0); Albumin/Globulin Ratio 0.6 (0.8-1.8); Alk Phos 146 U/L (50-136); Anion Gap 10 mmol/L (3-11); Aspartate Aminotrans (AST/SGOT 15 U/L (12-37); Bilirubin, Total 0.3 mg/dL (0.1-1.0); Blood Urea Nitrogen 17 mg/dL (8-24); Bun/Creatinine Ratio 23.6 (12.0-20.0); CO2, Blood 26 mmol/L (21-32); Calcium, Blood 8.5 mg/dL (8.5-10.1); Chloride, Blood 107 mmol/L (98-108); Creatinine, Blood 0.72 mg/dL (0.60-1.20); Ethanol (Alcohol), Blood, Med <3 mg/dL; Globulin, Blood 3.7 g/dL (2.2-4.0); Glomerular Filtration Rate 87 (60-); Glucose, Blood 91 mg/dL (70-99); Potassium, Blood 3.6 mmol/L (3.5-5.5); Sodium, Blood 139 mmol/L (136-145); Total Protein, Blood 5.9 g/dL (6.4-8.2)
[2024-03-08 10:05] LABS: Source, Urine Clean Catch
[2024-03-08] MEDS ORDERED: NS 1,000 ML IV SCH (10:10)
[2024-03-08 10:12] LABS: Bilirubin, Urine Neg (Neg); Blood, Urine 2+ (Neg); Glucose Qualitative, Urine Neg (Neg); Ketones, Urine Neg (Neg); Leukocyte Esterase, Urine 3+ (Neg); Nitrite, Urine Pos (Neg); Protein, Urine 2+ (Neg); Specific Gravity, Urine 1.015 (1.003-1.022); Urobilinogen, Urine 1+ (Normal)
[2024-03-08 10:18] LABS: Appearance, Urine Clear (Clear); Color, Urine Yellow (P-Yellow)
[2024-03-08 10:20] LABS: Bacteria Few /hpf; Squamous Epithelial Cells Rare /hpf (Few)
[2024-03-08 10:24] LABS: U Amphetamine Screen Not Detected; U Barbituate Screen Not Detected; U Benzodiazapine Screen Not Detected; U Buprenorphine Screen Not Detected; U Cannabinoids Screen Not Detected; U Cocaine Screen Not Detected; U Methadone Screen Not Detected; U Methamphetamine Screen Not Detected; U Opiates Screen Not Detected; U Oxycodone Screen Not Detected; U Phencyclidine Screen Not Detected
[2024-03-08] MEDS ORDERED: CefTRIAXone Sodium 1,000 MG in NS 100 ML IV ONE (10:30)
[2024-03-08] MEDS ORDERED: CEPH500 PO (10:34)
[2024-03-08 12:05] VITALS: BP 136/86
== END 2024-03-08 12:05 | disposition home or self-care (01) ==
LOC: ER 06:42
PROVIDERS: Student in an Organized Health Care Education/Training Program
DX: T83.511A Infection and inflammatory reaction due to indwelling urethral catheter, initial encounter (principal); N39.0 Urinary tract infection, site not specified; J44.9 Chronic obstructive pulmonary disease, unspecified; Z87.891 Personal history of nicotine dependence; Z79.01 Long term (current) use of anticoagulants; Z79.52 Long term (current) use of systemic steroids; Z79.899 Other long term (current) drug therapy
CPT/HCPCS: 51702; 70450; 80053; 80320; 81001; 85025; 87077; 87086; 87186; 96361; 96374; 99284-25; J0696; J7030

== ENCOUNTER 2024-03-16 20:13 | Emergency (ER) | payer MEDICARE ==
[~2024-03-16] VITALS: Ht 167.6 cm; Wt 45.4 kg
[~2024-03-16 20:13] MED LIST changes: +CEPH500 PO
[2024-03-16 20:39] VITALS: BP 134/96
[2024-03-16 21:19] LABS: BASOPHILS ABSOLUTE AUTO 0.02 K/mm3 (0.00-0.23); BASOPHILS PERCENT AUTO 0 % (0-2); EOSINOPHILS ABSOLUTE AUTO 0.02 K/mm3 (0.00-0.68); EOSINOPHILS PERCENT AUTO 0 % (0-6); Hemoglobin 12.9 g/dL (13.5-17.5); IMMATURE GRAN ABSOLUTE AUTO 0.05 K/mm3 (0.00-0.10); IMMATURE GRAN PERCENT AUTO 1 % (0-1); LYMPHOCYTES ABSOLUTE AUTO 1.93 K/mm3 (0.84-5.20); LYMPHOCYTES PERCENT AUTO 18 % (21-46); MONOCYTES ABSOLUTE AUTO 0.78 K/mm3 (0.16-1.47); MONOCYTES PERCENT AUTO 7 % (4-13); Mean Corpuscular HGB 27.7 pg (26.0-34.0); Mean Corpuscular HGB Conc 32.3 g/dL (31.5-36.5); Mean Corpuscular Volume 86 fL (80-100); Mean Platelet Volume 8.6 fL (9.1-12.4); NEUTROPHILS ABSOLUTE AUTO 8.21 K/mm3 (1.96-9.15); NEUTROPHILS PERCENT AUTO 75 % (41-73); Platelet Count 564 K/mm3 (150-400); RDW Coefficient Variation 15.4 % (11.7-14.2); RDW Standard Deviation 48.2 fL (35.1-46.3); Red Blood Cell Count 4.65 M/mm3 (4.30-5.90); White Blood Cell Count 11.01 K/mm3 (4.00-11.30)
[2024-03-16 21:51] LABS: Albumin, Blood 2.8 g/dL (3.4-5.0); Albumin/Globulin Ratio 0.6 (0.8-1.8); Bilirubin, Total 0.4 mg/dL (0.1-1.0); Calcium, Blood 9.2 mg/dL (8.5-10.1); Creatinine, Blood 0.53 mg/dL (0.60-1.20); Globulin, Blood 4.4 g/dL (2.2-4.0); Potassium, Blood 4.2 mmol/L (3.5-5.5); Total Protein, Blood 7.2 g/dL (6.4-8.2)
[2024-03-17] MEDS ORDERED: Cipro500 MG PO (10:40)
== END 2024-03-16 23:37 | disposition left against medical advice (07) ==
LOC: ER 20:13
PROVIDERS: Physician Assistant
DX: R41.0 Disorientation, unspecified (principal); Z87.440 Personal history of urinary (tract) infections; Z53.21 Procedure and treatment not carried out due to patient leaving prior to being seen by health care provider
CPT/HCPCS: 80053; 85025; 99281

== ENCOUNTER 2024-03-17 08:40 | Emergency (ER) | payer MEDICARE ==
[~2024-03-17] VITALS: Ht 157.5 cm; Wt 53.1 kg
[2024-03-17] MEDS ORDERED: Cefepime HCl 2,000 MG in NS 100 ML IV ONE (09:00)
[2024-03-17 09:14] LABS: BASOPHILS ABSOLUTE AUTO 0.05 K/mm3 (0.00-0.23); BASOPHILS PERCENT AUTO 0 % (0-2); EOSINOPHILS ABSOLUTE AUTO 0.25 K/mm3 (0.00-0.68); EOSINOPHILS PERCENT AUTO 2 % (0-6); Hematocrit 39.8 % (37.0-53.0); Hemoglobin 12.8 g/dL (13.5-17.5); IMMATURE GRAN ABSOLUTE AUTO 0.04 K/mm3 (0.00-0.10); IMMATURE GRAN PERCENT AUTO 0 % (0-1); LYMPHOCYTES ABSOLUTE AUTO 4.32 K/mm3 (0.84-5.20); LYMPHOCYTES PERCENT AUTO 36 % (21-46); MONOCYTES ABSOLUTE AUTO 0.94 K/mm3 (0.16-1.47); MONOCYTES PERCENT AUTO 8 % (4-13); Mean Corpuscular HGB 27.4 pg (26.0-34.0); Mean Corpuscular HGB Conc 32.2 g/dL (31.5-36.5); Mean Corpuscular Volume 85 fL (80-100); Mean Platelet Volume 8.2 fL (9.1-12.4); NEUTROPHILS ABSOLUTE AUTO 6.55 K/mm3 (1.96-9.15); NEUTROPHILS PERCENT AUTO 54 % (41-73); Platelet Count 541 K/mm3 (150-400); RDW Coefficient Variation 15.3 % (11.7-14.2); RDW Standard Deviation 47.3 fL (35.1-46.3); Red Blood Cell Count 4.68 M/mm3 (4.30-5.90); White Blood Cell Count 12.15 K/mm3 (4.00-11.30)
[2024-03-17 09:42] LABS: Albumin, Blood 2.8 g/dL (3.4-5.0); Albumin/Globulin Ratio 0.7 (0.8-1.8); Bilirubin, Total 0.4 mg/dL (0.1-1.0); Bun/Creatinine Ratio 20.1 (12.0-20.0); Calcium, Blood 9.1 mg/dL (8.5-10.1); Creatinine, Blood 0.7 mg/dL (0.60-1.20); Globulin, Blood 4.2 g/dL (2.2-4.0); Potassium, Blood 3.8 mmol/L (3.5-5.5)
[2024-03-17 09:47] LABS: Source, Urine Foley catheter
[2024-03-17 09:57] LABS: Appearance, Urine Cloudy (Clear); Bilirubin, Urine Neg (Neg); Blood, Urine 4+ (Neg); Color, Urine Yellow (P-Yellow); Glucose Qualitative, Urine Neg (Neg); Ketones, Urine Neg (Neg); Leukocyte Esterase, Urine 3+ (Neg); Nitrite, Urine Pos (Neg); Protein, Urine 2+ (Neg); Specific Gravity, Urine 1.015 (1.003-1.022); Urobilinogen, Urine NORM (Normal); pH, Urine 6.5 (5.0-8.0)
[2024-03-17 10:10] LABS: White Blood Cells, Urine TNTC /hpf (0-5)
[2024-03-17 10:11] LABS: Bacteria Mod /hpf; Squamous Epithelial Cells Rare /hpf (Few); Yeast/Fungi Urine Few /hpf
[2024-03-17] MEDS ORDERED: Cipro500 MG PO ×2 (10:40→10:54)
[2024-03-17 11:00] VITALS: BP 152/119
== END 2024-03-17 11:36 | disposition home or self-care (01) ==
LOC: ER 08:40
PROVIDERS: Physician Assistant
DX: N39.0 Urinary tract infection, site not specified (principal); J44.9 Chronic obstructive pulmonary disease, unspecified; Z87.891 Personal history of nicotine dependence; Z79.52 Long term (current) use of systemic steroids; Z79.51 Long term (current) use of inhaled steroids; Z79.899 Other long term (current) drug therapy
CPT/HCPCS: 51702; 80053; 81001; 85025; 87077; 87086; 87186; 96365-59; 99284-25; J0692

== ENCOUNTER 2024-03-22 20:06 | Emergency (ER) | payer MEDICARE ==
[~2024-03-22] VITALS: Ht 170.2 cm; Wt 53.1 kg
[~2024-03-22 20:06] MED LIST changes: +Cipro500 MG PO
[2024-03-22] MEDS ORDERED: Ipratropium/Albuterol SulF 2.5-0.5MG/3 ML Amp INH ONE (20:40)
[2024-03-22 20:56] LABS: CORONAVIRUS COVID-19 AG Negative (NEGATIVE); INFLUENZA A AG Negative (NEGATIVE); INFLUENZA B AG Negative (NEGATIVE)
[2024-03-22 21:15] LABS: BASOPHILS ABSOLUTE AUTO 0.05 K/mm3 (0.00-0.23); BASOPHILS PERCENT AUTO 0 % (0-2); EOSINOPHILS ABSOLUTE AUTO 0.18 K/mm3 (0.00-0.68); EOSINOPHILS PERCENT AUTO 2 % (0-6); Hematocrit 37.5 % (37.0-53.0); Hemoglobin 12.3 g/dL (13.5-17.5); IMMATURE GRAN ABSOLUTE AUTO 0.08 K/mm3 (0.00-0.10); IMMATURE GRAN PERCENT AUTO 1 % (0-1); LYMPHOCYTES ABSOLUTE AUTO 2.57 K/mm3 (0.84-5.20); LYMPHOCYTES PERCENT AUTO 22 % (21-46); MONOCYTES ABSOLUTE AUTO 0.76 K/mm3 (0.16-1.47); MONOCYTES PERCENT AUTO 6 % (4-13); Mean Corpuscular HGB 27.9 pg (26.0-34.0); Mean Corpuscular HGB Conc 32.8 g/dL (31.5-36.5); Mean Corpuscular Volume 85 fL (80-100); Mean Platelet Volume 8.3 fL (9.1-12.4); NEUTROPHILS ABSOLUTE AUTO 8.16 K/mm3 (1.96-9.15); NEUTROPHILS PERCENT AUTO 69 % (41-73); Platelet Count 516 K/mm3 (150-400); RDW Coefficient Variation 15.4 % (11.7-14.2); RDW Standard Deviation 47.2 fL (35.1-46.3); Red Blood Cell Count 4.41 M/mm3 (4.30-5.90)
[2024-03-22 21:20] LABS: Albumin, Blood 2.7 g/dL (3.4-5.0); Albumin/Globulin Ratio 0.7 (0.8-1.8); Bilirubin, Total 0.5 mg/dL (0.1-1.0); Bun/Creatinine Ratio 20.4 (12.0-20.0); Calcium, Blood 8.7 mg/dL (8.5-10.1); Creatinine, Blood 0.74 mg/dL (0.60-1.20); Globulin, Blood 3.9 g/dL (2.2-4.0); Magnesium, Blood 1.9 mg/dL (1.6-2.4); Potassium, Blood 4.2 mmol/L (3.5-5.5); Total Protein, Blood 6.6 g/dL (6.4-8.2)
[2024-03-22] MEDS ORDERED: Azithromycin 250 MG Tab PO ONE (23:40)
[2024-03-22] MEDS ORDERED: AZIT250 PO (23:41)
[2024-03-22] MEDS ORDERED: RX Prepack Albuterol 1 PREPACK/6.7 GM INH UD ONE (23:45)
[2024-03-23 00:30] VITALS: BP 149/97
== END 2024-03-23 00:40 | disposition home or self-care (01) ==
LOC: ER 20:06
PROVIDERS: Student in an Organized Health Care Education/Training Program
DX: J18.9 Pneumonia, unspecified organism (principal); J44.1 Chronic obstructive pulmonary disease with (acute) exacerbation; Z87.440 Personal history of urinary (tract) infections; Z87.891 Personal history of nicotine dependence; Z79.52 Long term (current) use of systemic steroids; Z79.899 Other long term (current) drug therapy; Z79.51 Long term (current) use of inhaled steroids
CPT/HCPCS: 71045; 80053; 83735; 84484; 85025; 87428-QW; 94640; 94664; 99285-25; A9270

== ENCOUNTER 2024-03-24 21:54 | Observation (INO) | payer MEDICARE ==
[~2024-03-24] VITALS: Ht 170.2 cm; Wt 50.5 kg
[2024-03-25 00:38] LABS: BASOPHILS ABSOLUTE AUTO 0.08 K/mm3 (0.00-0.23); BASOPHILS PERCENT AUTO 1 % (0-2); EOSINOPHILS ABSOLUTE AUTO 0.17 K/mm3 (0.00-0.68); EOSINOPHILS PERCENT AUTO 1 % (0-6); Hematocrit 39.6 % (37.0-53.0); Hemoglobin 12.7 g/dL (13.5-17.5); IMMATURE GRAN ABSOLUTE AUTO 0.06 K/mm3 (0.00-0.10); IMMATURE GRAN PERCENT AUTO 1 % (0-1); LYMPHOCYTES ABSOLUTE AUTO 2.67 K/mm3 (0.84-5.20); LYMPHOCYTES PERCENT AUTO 20 % (21-46); MONOCYTES ABSOLUTE AUTO 0.77 K/mm3 (0.16-1.47); MONOCYTES PERCENT AUTO 6 % (4-13); Mean Corpuscular HGB 27.3 pg (26.0-34.0); Mean Corpuscular HGB Conc 32.1 g/dL (31.5-36.5); Mean Corpuscular Volume 85 fL (80-100); Mean Platelet Volume 7.9 fL (9.1-12.4); NEUTROPHILS ABSOLUTE AUTO 9.54 K/mm3 (1.96-9.15); NEUTROPHILS PERCENT AUTO 72 % (41-73); Platelet Count 412 K/mm3 (150-400); RDW Coefficient Variation 15.9 % (11.7-14.2); Red Blood Cell Count 4.65 M/mm3 (4.30-5.90); White Blood Cell Count 13.29 K/mm3 (4.00-11.30)
[2024-03-25 00:45] LABS: CORONAVIRUS COVID-19 AG Negative (NEGATIVE); INFLUENZA A AG Negative (NEGATIVE); INFLUENZA B AG Negative (NEGATIVE)
[2024-03-25 00:56] LABS: Albumin, Blood 2.8 g/dL (3.4-5.0); Albumin/Globulin Ratio 0.7 (0.8-1.8); Bilirubin, Total 0.4 mg/dL (0.1-1.0); Bun/Creatinine Ratio 20.8 (12.0-20.0); Calcium, Blood 8.7 mg/dL (8.5-10.1); Creatinine, Blood 0.72 mg/dL (0.60-1.20); Globulin, Blood 3.8 g/dL (2.2-4.0); Potassium, Blood 3.8 mmol/L (3.5-5.5); Total Protein, Blood 6.6 g/dL (6.4-8.2)
[2024-03-25 01:57] LABS: Source, Urine Clean Catch
[2024-03-25 02:00] LABS: Bilirubin, Urine Neg (Neg); Blood, Urine 4+ (Neg); Glucose Qualitative, Urine Neg (Neg); Ketones, Urine Neg (Neg); Leukocyte Esterase, Urine 3+ (Neg); Nitrite, Urine Neg (Neg); Protein, Urine 3+ (Neg); Specific Gravity, Urine 1.015 (1.003-1.022); Urobilinogen, Urine NORM (Normal)
[2024-03-25 02:05] LABS: Appearance, Urine Cloudy (Clear); Color, Urine Yellow (P-Yellow)
[2024-03-25 02:06] LABS: Amorphous Mod (0-Heavy); Bacteria Many /hpf; Squamous Epithelial Cells Rare /hpf (Few); White Blood Cells, Urine TNTC /hpf (0-5)
[2024-03-25] MEDS ORDERED: CefTRIAXone Sodium 1,000 MG in NS 100 ML IV ONE (02:15)
[2024-03-25] MEDS ORDERED: Acetaminophen 325 MG TABLET PO PRN (02:55)
[2024-03-25] MEDS ORDERED: FLU VACC TS2024-25(6MOS UP)/PF 45 MCG/0.5 ML SYRINGE IM ONE (02:55)
[2024-03-25] MEDS ORDERED: Cefepime HCl 1,000 MG in NS 100 ML IV SCH (03:04)
[2024-03-25 05:53] LABS: BASOPHILS ABSOLUTE AUTO 0.09 K/mm3 (0.00-0.23); BASOPHILS PERCENT AUTO 1 % (0-2); EOSINOPHILS ABSOLUTE AUTO 0.25 K/mm3 (0.00-0.68); EOSINOPHILS PERCENT AUTO 2 % (0-6); Hematocrit 34.7 % (37.0-53.0); Hemoglobin 11.3 g/dL (13.5-17.5); IMMATURE GRAN ABSOLUTE AUTO 0.05 K/mm3 (0.00-0.10); IMMATURE GRAN PERCENT AUTO 1 % (0-1); LYMPHOCYTES ABSOLUTE AUTO 2.29 K/mm3 (0.84-5.20); LYMPHOCYTES PERCENT AUTO 22 % (21-46); MONOCYTES PERCENT AUTO 7 % (4-13); Mean Corpuscular HGB 27.8 pg (26.0-34.0); Mean Corpuscular HGB Conc 32.6 g/dL (31.5-36.5); Mean Corpuscular Volume 86 fL (80-100); Mean Platelet Volume 8.2 fL (9.1-12.4); NEUTROPHILS ABSOLUTE AUTO 7.09 K/mm3 (1.96-9.15); NEUTROPHILS PERCENT AUTO 68 % (41-73); Platelet Count 354 K/mm3 (150-400); RDW Coefficient Variation 15.9 % (11.7-14.2); RDW Standard Deviation 48.8 fL (35.1-46.3); Red Blood Cell Count 4.06 M/mm3 (4.30-5.90); White Blood Cell Count 10.47 K/mm3 (4.00-11.30)
[2024-03-25 06:23] LABS: Albumin, Blood 2.4 g/dL (3.4-5.0); Albumin/Globulin Ratio 0.7 (0.8-1.8); Bilirubin, Total 0.4 mg/dL (0.1-1.0); Bun/Creatinine Ratio 20.1 (12.0-20.0); Calcium, Blood 8.7 mg/dL (8.5-10.1); Creatinine, Blood 0.65 mg/dL (0.60-1.20); Globulin, Blood 3.6 g/dL (2.2-4.0); Magnesium, Blood 2.1 mg/dL (1.6-2.4); Potassium, Blood 3.9 mmol/L (3.5-5.5)
[2024-03-25] MEDS ORDERED: Lactobacil 2-S.Thermo-Bifido 1 1 Cap PO SCH (09:00)
[2024-03-25] MEDS ORDERED: Enoxaparin 40 MG/0.4 ML SYR SC SCH (09:00)
[2024-03-25 14:18] VITALS: BP 127/96
--- NOTE | 2024-03-25 15:29 | NUR ---
ADMIT: PT ADMITTED TO MED FLOOR AT 1400 VIA GURNEY. PT ON 4L OXYGEN WITH EXERTION AND 3L WITH REST. UNABLE TO OBTAIN PULSE AND 02 READING D/T POOR PERFUSION. PT ABLE TO TRANSFER TO HOSPITAL BED WITH ONE PERSON ASSIST. CHRONIC LEBLANC IN PLACE DRAINING LIGHT RED URINE. BONY PROMINENCES COVERED WITH MEPILEX ON LOWER BACK. NO ORDERS FOR TELE AT THIS TIME. PT VERY SWINOMISH. HEARING AIDS IN PLACE. DAUGHTER TO BRING IN NEW BATTERIES. CALL LIGHT IN REACH. BED IN LOWEST POSITION.
--- NOTE | 2024-03-25 17:58 | NUR ---
NOTE CALLED DR. HINTON, REPORTED PT PRESSURE SORES. WOUND PICS IN CHART, MEPILEX APPLIED TO COCCYX AND BACK. HEEL PROTECTORS ON.
--- NOTE | 2024-03-25 18:11 | NUR ---
SHIFT SUMMARY PT A&0X4. PT ADMITTED DUE TO UTI. PT IS [place]K. APPLIED MEPILEX TO SPINE BONY PROMINENCE, AND COCCYX. HEEL PROTECTORS ON. PT ON 3L N/C. PT CONT. PULSE OZ ON. SPO2 IS 100%. PT TURNED Q2 HOURS. PT BED IN LOWEST POSITION. PT HAS LEBLANC, ITS DRAINING WITH NO DEPENDENT LOOPS. RED URINE OUTPUT, DR. HINTON NOTIFIED. BED IN LOWEST POSSIBLE POSITION, CALL LIGHT IN REACH. PT AMBULATES WITH WALKER AND SBA.PT REPORTS NO PAIN.
[2024-03-25] MEDS ORDERED: AmLODIPine Besylate 5 MG Tab PO SCH (19:00)
[2024-03-25 19:06] VITALS: BP 141/95
[2024-03-25] MEDS ORDERED: NS 250 ML IV PRN (20:00)
--- NOTE | 2024-03-26 03:41 | NUR ---
PT BECAME VERY CONFUSED AFTER DAUGHTER LEFT, BUT EASLIY REORIENTABLE, STATED HE WAS VERY TIRED AND SLEPT T/O THE NIGHT, MATY ARACELIS 02 SAT=99% ON 3L VIA NC (REPORTED BASE IS 3-4), LEBLANC PATENT WITH GOOD OUTOUT THIS SHIFT, URINE CLEARING FROM CRANBERRY AT SHIFT START TO CURRENTLY DRAINING YELLOW; DENIED PAIN THIS SHIFT, SLEEPING AT THIS TIME, CALL LIGHT IN REACH, BED ALARM ACTIVE, WILL CONT TO MONITOR UNTIL REPORT GIVEN TO ONCOMING NURSE.
[2024-03-26 04:17] VITALS: BP 151/101
[2024-03-26 04:20] VITALS: BP 132/94
[2024-03-26 06:21] LABS: Albumin, Blood 2.5 g/dL (3.4-5.0); Albumin/Globulin Ratio 0.7 (0.8-1.8); Bilirubin, Total 0.6 mg/dL (0.1-1.0); Bun/Creatinine Ratio 13.7 (12.0-20.0); Calcium, Blood 8.6 mg/dL (8.5-10.1); Creatinine, Blood 0.73 mg/dL (0.60-1.20); Globulin, Blood 3.7 g/dL (2.2-4.0); Potassium, Blood 3.7 mmol/L (3.5-5.5); Total Protein, Blood 6.2 g/dL (6.4-8.2)
[2024-03-26 08:08] VITALS: BP 140/104
[2024-03-26 15:49] VITALS: BP 118/74
--- NOTE | 2024-03-26 18:10 | NUR ---
PT ALERT AND ORIENTED X3, SELF, PLACE, TIME. INTERMITTANT CONFUSION WITH SITUATION AND PLACE. SLEPT ON AND OFF FOR THE MORNING, UP FOR THE AFTERNOON AND EVENING. BARRIER CREAM APPLIED TO COCCYX. VSS, WITH TACHCARDIA HR UP TO 135 AT TIMES. O2 SATS 99% ON 3L O2, WHICH FAMILY STATES IS HIS BASELINE. LEBLANC IN PLACE DRAINING CLEAR GIULIA URINE WITH SMALL BLOOD CLOT THIS AM. 1 LARGE BM THIS SHIFT ON BSC. WORKED WITH OT, REFUSED PT. NO COMPLAINTS OF PAIN THIS SHIFT. PT REPOSITIONED THROUGHOUT SHIFT TO KEEP WEIGHT OFF OF COCCYX.
[2024-03-26 19:52] VITALS: BP 110/79
[2024-03-26 19:55] VITALS: BP 110/79
[2024-03-27 04:05] VITALS: BP 124/90
--- NOTE | 2024-03-27 04:28 | NUR ---
AAO X2 PERSON AND PLACE. [id number] WITH HEARING AIDES IN EARS AND WEARS DENTURES. 3L O2 VIA NC AT REST AND 4L WITH EXCERTIONS. STRICT I&O'S, CHRONIC LEBLANC CATH .PT IS WORKING WITH PT AND OT. HE LIVES @ [facility]. ONE EPISODE OF CONFUSION WITH BRONWYN LEIGH AND TIME, EASILY RE-ORIENTED.
[2024-03-27 06:11] LABS: BASOPHILS ABSOLUTE AUTO 0.07 K/mm3 (0.00-0.23); BASOPHILS PERCENT AUTO 1 % (0-2); EOSINOPHILS ABSOLUTE AUTO 0.25 K/mm3 (0.00-0.68); EOSINOPHILS PERCENT AUTO 3 % (0-6); Hematocrit 36.1 % (37.0-53.0); Hemoglobin 11.7 g/dL (13.5-17.5); IMMATURE GRAN ABSOLUTE AUTO 0.04 K/mm3 (0.00-0.10); IMMATURE GRAN PERCENT AUTO 1 % (0-1); LYMPHOCYTES ABSOLUTE AUTO 1.54 K/mm3 (0.84-5.20); LYMPHOCYTES PERCENT AUTO 21 % (21-46); MONOCYTES ABSOLUTE AUTO 0.65 K/mm3 (0.16-1.47); MONOCYTES PERCENT AUTO 9 % (4-13); Mean Corpuscular HGB 27.7 pg (26.0-34.0); Mean Corpuscular HGB Conc 32.4 g/dL (31.5-36.5); Mean Corpuscular Volume 85 fL (80-100); Mean Platelet Volume 8.5 fL (9.1-12.4); NEUTROPHILS ABSOLUTE AUTO 4.98 K/mm3 (1.96-9.15); NEUTROPHILS PERCENT AUTO 66 % (41-73); Platelet Count 332 K/mm3 (150-400); RDW Standard Deviation 49.2 fL (35.1-46.3); Red Blood Cell Count 4.23 M/mm3 (4.30-5.90); White Blood Cell Count 7.53 K/mm3 (4.00-11.30)
[2024-03-27 07:09] LABS: Albumin, Blood 2.4 g/dL (3.4-5.0); Albumin/Globulin Ratio 0.7 (0.8-1.8); Bilirubin, Total 0.4 mg/dL (0.1-1.0); Bun/Creatinine Ratio 16.2 (12.0-20.0); Calcium, Blood 8.7 mg/dL (8.5-10.1); Creatinine, Blood 0.8 mg/dL (0.60-1.20); Globulin, Blood 3.6 g/dL (2.2-4.0); Potassium, Blood 4.2 mmol/L (3.5-5.5)
[2024-03-27 07:35] VITALS: BP 136/89
[2024-03-27 11:17] LABS: Adenovirus Not Detected (NOT DETECT); Bordetella pertussis Not Detected (NOT DETECT); Chlamydophila pneumoniae Not Detected (NOT DETECT); Coronavirus 229E Not Detected (NOT DETECT); Coronavirus HKU1 Not Detected (NOT DETECT); Coronavirus NL63 Not Detected (NOT DETECT); Coronavirus OC43 Not Detected (NOT DETECT); Human Metapneumovirus Not Detected (NOT DETECT); Human Rhinovirus/Enterovirus Not Detected (NOT DETECT); Influenza A/2009-H1 Not Detected (NOT DETECT); Influenza A/H1 Not Detected (NOT DETECT); Influenza A/H3 Not Detected (NOT DETECT); Influenza B Not Detected (NOT DETECT); Mycoplasma pneumoniae Not Detected (NOT DETECT); Parainfluenza Virus 1 Not Detected (NOT DETECT); Parainfluenza Virus 2 Not Detected (NOT DETECT); Parainfluenza Virus 3 Not Detected (NOT DETECT); Parainfluenza Virus 4 Not Detected (NOT DETECT); Respiratory Syncytial Virus Not Detected (NOT DETECT); SARS-Cov-2 (COVID-19), BioFire Not Detected (NOT DETECT)
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
[2024-03-27 15:48] VITALS: BP 102/83
[2024-03-27 19:06] VITALS: BP 117/70
[2024-03-28 04:04] VITALS: BP 124/69
--- NOTE | 2024-03-28 06:04 | NUR ---
SHIFT SUMMARY PT ORIENTED TO SELF ONLY WITH TANGENTIAL THINKING. PT REFUSING TO CHANGE BEDS WHEN HEAD OF BED WOULD NOT LOWER, STATING IT WOULD WORK LATER WHEN HIS PHONE WAS CHARGED. THIS AM, PT RELUCTANTLY AGREED TO CHANGE BEDS. 3LNC WITH O2 SATS MAINTAINING MID TO HIGH 90'S. PT REMAINS SOB WITH ACTIVITY. PT TURNED AND REPOSITIONED THROUGH THE NIGHT. COCCYX REMAINS KENNY WITHOUT MEPELEX DUE TO PRIOR RN REPORT THAT IT WAS DIFFICULT TO REMOVE OLD MEPELEX DUE TO SURROUNDING SKIN BEING PAPER THIN WITH POOR TURGOR. CREAM APPLIED. CHRONIC LEBLANC DRAINING YELLOW URINE WITH SOME SEDIMENT. BED IN LOWEST POSITION, CALL LIGHT WITHIN REACH, SIDE RAILS UP X2.
[2024-03-28 07:49] VITALS: BP 103/91
[2024-03-28] MEDS ORDERED: AMLO5 PO (14:32)
[2024-03-28] MEDS ORDERED: Diflucan100 MG PO (14:40)
--- NOTE | 2024-03-28 15:15 | NUR ---
pt discharged PT AND FAMILY GIVEN DC INSTRUCTIONS BY SARA GRANADO. LEG CATHETER BAG APPLIED. THE PTS BELONGINGS RELEASED TO THE FAMILY. THE PT WAS TRANSFERED VIA WHEELCHAIR ACCOMPANIED BY THE PATTERN SHOP SUPERVISOR AND HIS FAMILY
== END 2024-03-28 15:12 | disposition home health service (06) ==
LOC: ER 21:54 → ERHOLD 21:55 → MEDS 03-25 13:58
PROVIDERS: Internal Medicine; Student in an Organized Health Care Education/Training Program; ADMIT Student in an Organized Health Care Education/Training Program
DX: J96.11 Chronic respiratory failure with hypoxia (principal); G93.41 Metabolic encephalopathy; N39.0 Urinary tract infection, site not specified; J44.9 Chronic obstructive pulmonary disease, unspecified; I25.10 Atherosclerotic heart disease of native coronary artery without angina pectoris; N40.0 Benign prostatic hyperplasia without lower urinary tract symptoms; L89.621 Pressure ulcer of left heel, stage 1; L89.611 Pressure ulcer of right heel, stage 1; L89.151 Pressure ulcer of sacral region, stage 1; I12.9 Hypertensive chronic kidney disease with stage 1 through stage 4 chronic kidney disease, or unspecified chronic kidney disease; N18.2 Chronic kidney disease, stage 2 (mild); Z66 Do not resuscitate; Z79.899 Other long term (current) drug therapy; Z87.891 Personal history of nicotine dependence
CPT/HCPCS: 0202U; 36415; 51702; 76770; 80053; 81001; 83735; 83880; 85025; 87086; 87428-QW; 93005; 93010; 94762; 96365-59; 96366; 96366-59; 96367-59; 96372; 96372-59; 97161; 97165; 97530; 97535; 99285-25; A9270; G0378; J0692; J0696; J1650; J7050

== ENCOUNTER 2024-04-04 17:38 | Inpatient (IN) | payer MEDICARE ==
[~2024-04-04] VITALS: Ht 170.2 cm; Wt 55.0 kg
[~2024-04-04 17:38] MED LIST changes: +AMLO5 PO; +Diflucan100 MG PO
[2024-04-04 18:23] LABS: Base Excess Venous 2.1 mmol/L; PCO2 Venous 50.2 mmHg (38-42); pH Blood Venous 7.35 (7.34-7.37)
[2024-04-04 18:28] LABS: BASOPHILS ABSOLUTE AUTO 0.04 K/mm3 (0.00-0.23); BASOPHILS PERCENT AUTO 0 % (0-2); EOSINOPHILS ABSOLUTE AUTO 0.02 K/mm3 (0.00-0.68); EOSINOPHILS PERCENT AUTO 0 % (0-6); Hematocrit 36.8 % (37.0-53.0); Hemoglobin 11.9 g/dL (13.5-17.5); IMMATURE GRAN ABSOLUTE AUTO 0.07 K/mm3 (0.00-0.10); IMMATURE GRAN PERCENT AUTO 1 % (0-1); LYMPHOCYTES ABSOLUTE AUTO 3.98 K/mm3 (0.84-5.20); LYMPHOCYTES PERCENT AUTO 28 % (21-46); MONOCYTES ABSOLUTE AUTO 0.68 K/mm3 (0.16-1.47); MONOCYTES PERCENT AUTO 5 % (4-13); Mean Corpuscular HGB 27.8 pg (26.0-34.0); Mean Corpuscular HGB Conc 32.3 g/dL (31.5-36.5); Mean Corpuscular Volume 86 fL (80-100); Mean Platelet Volume 8.6 fL (9.1-12.4); NEUTROPHILS ABSOLUTE AUTO 9.35 K/mm3 (1.96-9.15); NEUTROPHILS PERCENT AUTO 66 % (41-73); Platelet Count 546 K/mm3 (150-400); RDW Standard Deviation 50.1 fL (35.1-46.3); Red Blood Cell Count 4.28 M/mm3 (4.30-5.90); White Blood Cell Count 14.14 K/mm3 (4.00-11.30)
[2024-04-04 18:48] LABS: Albumin, Blood 2.6 g/dL (3.4-5.0); Albumin/Globulin Ratio 0.6 (0.8-1.8); Bilirubin, Total 0.3 mg/dL (0.1-1.0); Bun/Creatinine Ratio 24.1 (12.0-20.0); Calcium, Blood 8.8 mg/dL (8.5-10.1); Creatinine, Blood 0.58 mg/dL (0.60-1.20); Globulin, Blood 4.1 g/dL (2.2-4.0); Magnesium, Blood 2.1 mg/dL (1.6-2.4); Total Protein, Blood 6.7 g/dL (6.4-8.2)
[2024-04-04 19:23] LABS: Influenza A, PCR NEGATIVE (NEGATIVE); Influenza B, PCR NEGATIVE (NEGATIVE); Resp Syncytial Virus, PCR NEGATIVE (NEGATIVE); SARS-Cov-2 (COVID-19) PCR, MMC NEGATIVE (NEGATIVE)
[2024-04-04] MEDS ORDERED: CefTRIAXone Sodium 1,000 MG in NS 50 ML IV ONE (21:05)
[2024-04-04] MEDS ORDERED: Azithromycin 500 MG in NS 250 ML IV ONE (21:05)
[2024-04-04] MEDS ORDERED: Ipratropium/Albuterol SulF 2.5-0.5MG/3 ML Amp INH SCH (21:50)
[2024-04-04] MEDS ORDERED: Albuterol 2.5 MG/3 ML VIAL INH PRN (21:50)
[2024-04-04] MEDS ORDERED: Benzonatate 100 MG Cap PO PRN (21:50)
[2024-04-04] MEDS ORDERED: Ondansetron HCl 2 MG / ML 2ML Vial IV PRN (21:50)
[2024-04-04] MEDS ORDERED: FLU VACC TS2024-25(6MOS UP)/PF 45 MCG/0.5 ML SYRINGE IM ONE (21:50)
[2024-04-04 22:27] LABS: Base Excess Venous 0.7 mmol/L; PCO2 Venous 41.3 mmHg (38-42)
[2024-04-05 00:39] VITALS: BP 132/95
[2024-04-05 01:44] LABS: Hematocrit 36.2 % (37.0-53.0); Hemoglobin 11.7 g/dL (13.5-17.5); Mean Corpuscular HGB 27.9 pg (26.0-34.0); Mean Corpuscular HGB Conc 32.3 g/dL (31.5-36.5); Mean Corpuscular Volume 86 fL (80-100); Mean Platelet Volume 8.3 fL (9.1-12.4); Platelet Count 438 K/mm3 (150-400); White Blood Cell Count 9.78 K/mm3 (4.00-11.30)
[2024-04-05 02:07] LABS: Bun/Creatinine Ratio 25.7 (12.0-20.0); Calcium, Blood 8.8 mg/dL (8.5-10.1); Creatinine, Blood 0.55 mg/dL (0.60-1.20); Potassium, Blood 4.2 mmol/L (3.5-5.5)
[2024-04-05 02:32] LABS: Source, Urine Foley catheter
[2024-04-05 02:42] LABS: Bilirubin, Urine Neg (Neg); Blood, Urine 2+ (Neg); Glucose Qualitative, Urine Neg (Neg); Ketones, Urine Neg (Neg); Leukocyte Esterase, Urine 2+ (Neg); Nitrite, Urine Neg (Neg); Protein, Urine 2+ (Neg); Urobilinogen, Urine NORM (Normal)
[2024-04-05 03:09] LABS: Appearance, Urine Hazy (Clear); Color, Urine Yellow (P-Yellow)
[2024-04-05 03:11] LABS: Amorphous Light (0-Heavy); Bacteria Many /hpf; Squamous Epithelial Cells Many /hpf (Few)
[2024-04-05 03:43] VITALS: BP 143/97
[2024-04-05 07:12] VITALS: BP 141/101
--- NOTE | 2024-04-05 07:53 | NUR ---
SHIFT SUMMARY; AFTER ADMIT, PATIENT WAS ABLE TO SLEEP IN LONG INTERVAL. O2/4L/NC. CHRONIC LEBLANC COMPLETLY CHANGED. SPECIMEN SENT TO LAB.
[2024-04-05] MEDS ORDERED: Enoxaparin 40 MG/0.4 ML SYR SC SCH (09:00)
[2024-04-05] MEDS ORDERED: MethylPREDNISolone Sod Succ 125 MG Vial IV SCH (09:00)
[2024-04-05] MEDS ORDERED: Tamsulosin HCl 0.4 MG Cap PO SCH (09:00)
[2024-04-05] MEDS ORDERED: AmLODIPine Besylate 5 MG Tab PO SCH (09:00)
[2024-04-05 14:17] VITALS: BP 110/67
--- NOTE | 2024-04-05 15:23 | NUR ---
SHIFT SUMMARY PT IS A/O X4, FOLLOWS COMMANDS, AMBULATING 1 ASST W/ FWW TO BATHROOM. LEBLANC IN PLACE DRAINING YELLOW URINE W/ STAT LOCK. LUNG SOUNDS CLEAR/DIMINISHED. 5LNC IN PLACE, PT WEARS 4L AT BASELINE, CONT BIOX IN PLACE W/ O2 SATS <92%. BREATHING TX W/ RT NEEDED/ORDERED. VSS. MEPILEX IN PLACE TO COCCYX. WOB INCREASES W/ EXERTION, OTHERWISE PT DENIES SOB. REVIEWED HOME MEDS W/ DAUGHTER VERONICA. PT USING CALL LIGHT APPROPRIATELY. CALL LIGHT IN REACH. REPORT TO ONCOMING RN.
[2024-04-05 19:11] VITALS: BP 111/64
[2024-04-05] MEDS ORDERED: Azithromycin 500 MG in NS 250 ML IV SCH (21:00)
--- NOTE | 2024-04-06 03:04 | NUR ---
REPORT TO SARA GRANADO TO ASSUME CARE.
[2024-04-06 04:58] VITALS: BP 115/72
[2024-04-06 05:07] LABS: BASOPHILS PERCENT AUTO 0 % (0-2); EOSINOPHILS PERCENT AUTO 0 % (0-6); Hematocrit 32.9 % (37.0-53.0); Hemoglobin 10.6 g/dL (13.5-17.5); IMMATURE GRAN ABSOLUTE AUTO 0.04 K/mm3 (0.00-0.10); IMMATURE GRAN PERCENT AUTO 0 % (0-1); LYMPHOCYTES PERCENT AUTO 17 % (21-46); MONOCYTES ABSOLUTE AUTO 0.65 K/mm3 (0.16-1.47); MONOCYTES PERCENT AUTO 6 % (4-13); Mean Corpuscular HGB 27.5 pg (26.0-34.0); Mean Corpuscular HGB Conc 32.2 g/dL (31.5-36.5); Mean Corpuscular Volume 86 fL (80-100); Mean Platelet Volume 8.2 fL (9.1-12.4); NEUTROPHILS ABSOLUTE AUTO 7.88 K/mm3 (1.96-9.15); NEUTROPHILS PERCENT AUTO 77 % (41-73); Platelet Count 442 K/mm3 (150-400); RDW Coefficient Variation 15.9 % (11.7-14.2); RDW Standard Deviation 49.3 fL (35.1-46.3); Red Blood Cell Count 3.85 M/mm3 (4.30-5.90); White Blood Cell Count 10.27 K/mm3 (4.00-11.30)
--- NOTE | 2024-04-06 05:15 | NUR ---
SHIFT SUMMARY ASSUMED CARE OF PT APPROX 0300 FROM BLAIRE GRANADO. PT HAS SLEPT WELL. VSS. DENIES ANY PAIN, N/V & STATES BREATHING IS "MUCH BETTER" THIS AM, DENIES DYSPNEA. E/U RESP @REST. SPO2 @97% ON 3L 02-RT TITRATED DOWN. OCC MOIST COUGH. DEPENDENT EDEMA NOTED TO BILAT INNER THIGHS & CALVES. CALL LIGHT IN REACH.
[2024-04-06 05:39] LABS: Albumin, Blood 2.4 g/dL (3.4-5.0); Anion Gap 11 mmol/L (3-11); Blood Urea Nitrogen 21 mg/dL (8-24); CO2, Blood 25 mmol/L (21-32); Calcium, Blood 8.9 mg/dL (8.5-10.1); Chloride, Blood 103 mmol/L (98-108); Creatinine, Blood 0.73 mg/dL (0.60-1.20); Glomerular Filtration Rate 87 (60-); Glucose, Blood 157 mg/dL (70-99); Magnesium, Blood 2.2 mg/dL (1.6-2.4); Phosphorus, Blood 3.4 mg/dL (2.5-4.9); Potassium, Blood 4.3 mmol/L (3.5-5.5); Sodium, Blood 135 mmol/L (136-145)
[2024-04-06 07:19] VITALS: BP 119/75
[2024-04-06] MEDS ORDERED: NS 1,000 ML IV SCH (09:30)
[2024-04-06] MEDS ORDERED: MethylPREDNISolone Sod Succ 125 MG Vial IV SCH (10:35)
[2024-04-06 13:46] VITALS: BP 124/75
--- NOTE | 2024-04-06 19:11 | NUR ---
SHIFT SUMMARY S/P COPD EXACERBATION, A/OX4, VSS, TOLERATING PO, HE REMAINS ON O2 NC WHICH IS HIS BASELINE AND HAS BEEN ADJUSTED BETWEEN 3L TO 5L. LAST LACTIC WNL. NO ACUTE EVENTS THIS SHIFT, CALL LIGHT IN REACH.
[2024-04-06] MEDS ORDERED: Tiotropium Bromide 2.5 MCG/ACT MIST INHAL (10 ACT/4 GM) INH SCH (19:50)
[2024-04-06] MEDS ORDERED: Mometasone/Formoterol MDI 200/5 mcg 13 GM INH SCH (19:50)
[2024-04-07 04:11] VITALS: BP 138/94
--- NOTE | 2024-04-07 05:00 | NUR ---
SHIFT SUMMARY AOX4. VSS. SPO2 >92% ON 3L O2 T/O NIGHT. BS DIM. LABOURED BREATHING W/ACTIVITY OR TALKING @TIMES. WET, MOIST NON-PRODUCTIVE SOUNDING COUGH. THIS AM I NOTICED PT HAS INCREASED EDEMA COMPARED TO LAST NIGHT. R CHEEK (NASAL CANNULA LEAVING INDENT), R ARM VERY SWOLLEN, BILAT UPPER THIGH W/EDEMA & BLE +2-[address]. IN[address] DOZIER & HE ORDERED IV FLUIDS TO BE STOPPED & FOR BNP TO BE ADDED TO AM LABS. LEBLANC W/1500ML LIGHT YELLOW URINE OUT. CALL LIGHT IN REACH.
[2024-04-07 06:09] LABS: BASOPHILS ABSOLUTE AUTO 0.01 K/mm3 (0.00-0.23); BASOPHILS PERCENT AUTO 0 % (0-2); EOSINOPHILS PERCENT AUTO 0 % (0-6); Hematocrit 30.9 % (37.0-53.0); Hemoglobin 9.9 g/dL (13.5-17.5); IMMATURE GRAN ABSOLUTE AUTO 0.07 K/mm3 (0.00-0.10); IMMATURE GRAN PERCENT AUTO 1 % (0-1); LYMPHOCYTES ABSOLUTE AUTO 2.18 K/mm3 (0.84-5.20); LYMPHOCYTES PERCENT AUTO 25 % (21-46); MONOCYTES ABSOLUTE AUTO 0.78 K/mm3 (0.16-1.47); MONOCYTES PERCENT AUTO 9 % (4-13); Mean Corpuscular HGB 27.8 pg (26.0-34.0); Mean Corpuscular Volume 87 fL (80-100); Mean Platelet Volume 8.7 fL (9.1-12.4); NEUTROPHILS ABSOLUTE AUTO 5.86 K/mm3 (1.96-9.15); NEUTROPHILS PERCENT AUTO 66 % (41-73); Platelet Count 444 K/mm3 (150-400); RDW Standard Deviation 51.2 fL (35.1-46.3); Red Blood Cell Count 3.56 M/mm3 (4.30-5.90)
[2024-04-07 06:40] LABS: Albumin, Blood 2.2 g/dL (3.4-5.0); Anion Gap 8 mmol/L (3-11); Blood Urea Nitrogen 20 mg/dL (8-24); Bun/Creatinine Ratio 28.2 (12.0-20.0); CO2, Blood 28 mmol/L (21-32); Calcium, Blood 8.5 mg/dL (8.5-10.1); Chloride, Blood 104 mmol/L (98-108); Creatinine, Blood 0.71 mg/dL (0.60-1.20); Glomerular Filtration Rate 88 (60-); Glucose, Blood 85 mg/dL (70-99); Phosphorus, Blood 3.2 mg/dL (2.5-4.9); Potassium, Blood 4.4 mmol/L (3.5-5.5); Sodium, Blood 136 mmol/L (136-145)
[2024-04-07 07:12] VITALS: BP 146/89
[2024-04-07] MEDS ORDERED: MethylPREDNISolone Sod Succ 125 MG Vial IV SCH (09:00)
[2024-04-07 15:22] VITALS: BP 119/75
--- NOTE | 2024-04-07 17:11 | NUR ---
SHIFT SUMMARY PT REMAINS ON 3L NASAL CANULA. BECOMES DYSPNIC WITH EXERTION OR DURING EATING. RECOVERS QUICKLY. FREQUENT COUGHING HEARD, ABLE TO COUGH UP PHLEGM. EDEMA REMAINS IN BILATERAL LOWER EXTREMETIES. DENIES SOB AT REST. UP TO CHAIR DURING SHIFT, ABLE TO STAND AND TRANSFER WELL. LEBLANC PATENT AND DRAINING.
[2024-04-07 19:27] VITALS: BP 121/72
[2024-04-08 04:15] VITALS: BP 140/92
--- NOTE | 2024-04-08 05:48 | NUR ---
SHIFT SUMMARY S/P COPD EXACERBATION. NO ACUTE CHANGES OVERNIGHT. VSS, PT SAT >90% ON 3L O2 VIA NC. DESATURATION c MIN EXERTION. CONT BIOX IN USE. CHRONIC LEBLANC DRAINING TO GRAVITY. EDEMA TO BILAT LEs REMAINS UNCHANGED. IV ABX PER EMAR. PREVENATIVE MEPILEX TO COCCYX IN USE. AMB USING FWW c SBA. CALL LIGHT IN REACH, BED IN LOWEST POSITION, WILL REPORT TO DAY RN.
[2024-04-08 07:23] VITALS: BP 147/91
[2024-04-08 12:09] LABS: BASOPHILS ABSOLUTE AUTO 0.02 K/mm3 (0.00-0.23); BASOPHILS PERCENT AUTO 0 % (0-2); EOSINOPHILS ABSOLUTE AUTO 0.07 K/mm3 (0.00-0.68); EOSINOPHILS PERCENT AUTO 1 % (0-6); Hemoglobin 11.5 g/dL (13.5-17.5); IMMATURE GRAN ABSOLUTE AUTO 0.13 K/mm3 (0.00-0.10); IMMATURE GRAN PERCENT AUTO 1 % (0-1); LYMPHOCYTES ABSOLUTE AUTO 1.99 K/mm3 (0.84-5.20); LYMPHOCYTES PERCENT AUTO 15 % (21-46); MONOCYTES ABSOLUTE AUTO 0.74 K/mm3 (0.16-1.47); MONOCYTES PERCENT AUTO 5 % (4-13); Mean Corpuscular HGB Conc 32.9 g/dL (31.5-36.5); Mean Corpuscular Volume 85 fL (80-100); Mean Platelet Volume 8.6 fL (9.1-12.4); NEUTROPHILS ABSOLUTE AUTO 10.73 K/mm3 (1.96-9.15); NEUTROPHILS PERCENT AUTO 79 % (41-73); Platelet Count 479 K/mm3 (150-400); RDW Coefficient Variation 16.3 % (11.7-14.2); RDW Standard Deviation 50.3 fL (35.1-46.3); Red Blood Cell Count 4.11 M/mm3 (4.30-5.90); White Blood Cell Count 13.68 K/mm3 (4.00-11.30)
[2024-04-08 12:39] LABS: Albumin, Blood 2.5 g/dL (3.4-5.0); Albumin/Globulin Ratio 0.7 (0.8-1.8); Bilirubin, Total 0.3 mg/dL (0.1-1.0); Bun/Creatinine Ratio 37.9 (12.0-20.0); Calcium, Blood 8.7 mg/dL (8.5-10.1); Creatinine, Blood 0.58 mg/dL (0.60-1.20); Globulin, Blood 3.6 g/dL (2.2-4.0); Magnesium, Blood 2.3 mg/dL (1.6-2.4); Potassium, Blood 4.4 mmol/L (3.5-5.5); Total Protein, Blood 6.1 g/dL (6.4-8.2)
[2024-04-08] MEDS ORDERED: Azithromycin 250 MG Tab PO ONE (14:05)
[2024-04-08 15:52] VITALS: BP 125/78
--- NOTE | 2024-04-08 17:23 | NUR ---
SHIFT SUMMARY PT HAS BEEN A/OX4, AMBULATING 1 ASST W/ FWW. LEBLANC IN PLACE DRAINING YELLOW URINE, PT TOLERATING PO FLUIDS AND REG DIET. LUNG SOUNDS CLEAR/DIMINISHED, PT TOLERATING 2LNC W/ O2 SATS >92% WHILE RESTING, HOWEVER IS REQUIRING UP TO 4LNC WHILE AMBULATING, SOB INCREASES W/ EXERTION. MODERATE EDEMA TO BLE. PT UP IN CHAIR MOST OF THE DAY. CURRENTLY RESTING COMFORTABLY IN BED, CALL LIGHT IN REACH.
[2024-04-08 19:30] VITALS: BP 124/77
[2024-04-09 03:54] VITALS: BP 141/91
--- NOTE | 2024-04-09 04:15 | NUR ---
SHIFT SUMMARY S/P COPD EXACERBATION. NO ACUTE CHANGES OVERNIGHT. VSS, PT SAT >90% ON 2L O2 VIA NC. CONT BIOX IN USE. DESAT c MIN EXERTION. CHRONIC LEBLANC DRAINING URINE TO GRAVITY. EDEMA TO BILAT LOWER EXTREMITIES. AMBULATES USING FWW c SBA. PT SLEPT WELL T/O NIGHT. CALL LIGHT IN REACH, BED IN LOWEST POSITION, WILL REPORT TO DAY RN.
[2024-04-09 05:56] LABS: BASOPHILS ABSOLUTE AUTO 0.03 K/mm3 (0.00-0.23); BASOPHILS PERCENT AUTO 0 % (0-2); EOSINOPHILS ABSOLUTE AUTO 0.01 K/mm3 (0.00-0.68); EOSINOPHILS PERCENT AUTO 0 % (0-6); Hematocrit 33.3 % (37.0-53.0); Hemoglobin 10.7 g/dL (13.5-17.5); IMMATURE GRAN ABSOLUTE AUTO 0.16 K/mm3 (0.00-0.10); IMMATURE GRAN PERCENT AUTO 2 % (0-1); LYMPHOCYTES ABSOLUTE AUTO 2.73 K/mm3 (0.84-5.20); LYMPHOCYTES PERCENT AUTO 28 % (21-46); MONOCYTES ABSOLUTE AUTO 0.75 K/mm3 (0.16-1.47); MONOCYTES PERCENT AUTO 8 % (4-13); Mean Corpuscular HGB 27.3 pg (26.0-34.0); Mean Corpuscular HGB Conc 32.1 g/dL (31.5-36.5); Mean Corpuscular Volume 85 fL (80-100); Mean Platelet Volume 8.7 fL (9.1-12.4); NEUTROPHILS ABSOLUTE AUTO 6.23 K/mm3 (1.96-9.15); NEUTROPHILS PERCENT AUTO 63 % (41-73); Platelet Count 483 K/mm3 (150-400); RDW Coefficient Variation 16.1 % (11.7-14.2); RDW Standard Deviation 50.1 fL (35.1-46.3); Red Blood Cell Count 3.92 M/mm3 (4.30-5.90); White Blood Cell Count 9.91 K/mm3 (4.00-11.30)
[2024-04-09 06:20] LABS: Albumin, Blood 2.3 g/dL (3.4-5.0); Albumin/Globulin Ratio 0.7 (0.8-1.8); Bilirubin, Total 0.2 mg/dL (0.1-1.0); Bun/Creatinine Ratio 32.5 (12.0-20.0); Calcium, Blood 8.5 mg/dL (8.5-10.1); Creatinine, Blood 0.74 mg/dL (0.60-1.20); Globulin, Blood 3.3 g/dL (2.2-4.0); Magnesium, Blood 2.3 mg/dL (1.6-2.4); Potassium, Blood 4.3 mmol/L (3.5-5.5); Total Protein, Blood 5.6 g/dL (6.4-8.2)
[2024-04-09 07:26] VITALS: BP 132/82
--- NOTE | 2024-04-09 15:30 | NUR ---
SHIFT SUMMARY/TRANSFER NOTE PT IS A/OX4, SBA W/ FWW TO BS. SOB INCREASES UPON EXERTION, PT REQUIRING UP TO 4LNC WHILE AMBULATING BUT IS TOLERATING 2LNC AT REST W/ O2 SATS >92%, DENIES SOB AT REST. BREATHING TREATMENTS PER RT PRN AND SCHEDULED. PT HAS LEBLANC CATH DRAINING YELLOW URINE. VSS, PT TACHY W/ EXERTION 100-110BPM. REPORT TO SUNI WELLS PT TO TRANSFER TO ROOM [facility]. PT REQUESTED TO USE BSC AND HAD LARGE BOWEL MOVEMENT RIGHT BEFORE TRANSFER, SO PT WAS INCREASINGLY SOB. CALLED RT FOR PT TO RECEIVE BREATHING TX UPON ARRIVAL TO [facility]. O2 SATS >92% ON 3LNC AT TIME OF TRANSFER. DR. GOMEZ CAME TO ROUND ON PT PT WAS BEING TRANSFERED TO MEDICAL FLOOR. NOTIFIED OF INCREASING PITTING EDEMA TO BLE AND TACHYCARDIA. ALSO NOTIFIED HER OF INCREASING SOB W/ AMBULATION. DR. GOMEZ TO PUT IN ORDERS. PT TRANSFERED IN STABLE CONDITION TO ROOM 342 W/ ALL BELONGINGS.
[2024-04-09 15:37] VITALS: BP 128/77
--- NOTE | 2024-04-09 15:46 | NUR ---
Patient agreed to have a student nurse work with him today.
--- NOTE | 2024-04-09 17:13 | NUR ---
SHIFT SUMMARY/TRANSFER NOTE PT TRANSFERRED TO THE FLOOR AT 1532, REPORT RECEIVED FROM VANNESA WATSON. PT ORIENTED TO THE ROOM. SINCE THE TRANSFER, THE PT ARRIVED SOB. RT WAS CONTACTED AND A BREATHING TREATMENT ADMINISTERED PER THE EMAR. PT STATES MUCH RELIEF. HE HAS HAD NO OTHER COMPLAINTS. HE IS A SBA WITH THE FWW. LEBLANC IN PLACE, PATENT, AND DRAINING. HE IS ON 2L AT REST, 4-5 WHILE AMBULATING. HE CALLS AND MAKES HIS NEEDS KNOWN. HEARING AIDES IN PLACE BUT PT REMAINS AUGUSTINE. REPOSIIONED SINCE THE TRANSFER. PER REPORT, PT HAD A BM PRIOR TO THE TRANSFER. CALL LIGHT WITHIN REACH, BED LOCKED AND IN THE LOWEST POSITION. WILL REPORT TO ONCOMING NURSE.
[2024-04-09 20:46] VITALS: BP 129/83
[2024-04-09] MEDS ORDERED: Doxycycline Hyclate 100 MG TAB PO SCH (21:00)
[2024-04-10 04:06] VITALS: BP 151/93
--- NOTE | 2024-04-10 04:20 | NUR ---
SHIFT SUMMARY. PATIENT IS A&OX4. PATIENT HAS A CHRONIC LEBLANC. PATIENT IS ABLE TO MAKE HIS NEEDS KNOWN. PATIENT IS ON 3L'S VIA NASAL CANNULA, PATIENT REPORTS 3LPM IS BASELINE BUT HE INCREASES HIS OXYGEN TO 4LPM WITH ACTIVITIE; CURRENTLY WE ARE INCREASING PATIENTS OXYGEN TO 4-5LPM WITH ACTIVITY. PATIENT RESTING T/O NIGHT WITH RESPIRATIONS EQUAL AND UNLABORED. BED IS LOCKED IN THE LOWEST POSITION WITH CALL LIGHT IN REACH. CARE IS ONGOING.
[2024-04-10 06:05] LABS: BASOPHILS ABSOLUTE AUTO 0.03 K/mm3 (0.00-0.23); BASOPHILS PERCENT AUTO 0 % (0-2); EOSINOPHILS ABSOLUTE AUTO 0.03 K/mm3 (0.00-0.68); EOSINOPHILS PERCENT AUTO 0 % (0-6); Hematocrit 34.4 % (37.0-53.0); IMMATURE GRAN ABSOLUTE AUTO 0.17 K/mm3 (0.00-0.10); IMMATURE GRAN PERCENT AUTO 2 % (0-1); LYMPHOCYTES ABSOLUTE AUTO 2.94 K/mm3 (0.84-5.20); LYMPHOCYTES PERCENT AUTO 28 % (21-46); MONOCYTES ABSOLUTE AUTO 0.77 K/mm3 (0.16-1.47); MONOCYTES PERCENT AUTO 7 % (4-13); Mean Corpuscular HGB 27.3 pg (26.0-34.0); Mean Corpuscular Volume 85 fL (80-100); Mean Platelet Volume 8.8 fL (9.1-12.4); NEUTROPHILS ABSOLUTE AUTO 6.65 K/mm3 (1.96-9.15); NEUTROPHILS PERCENT AUTO 63 % (41-73); Platelet Count 520 K/mm3 (150-400); RDW Coefficient Variation 16.1 % (11.7-14.2); RDW Standard Deviation 50.2 fL (35.1-46.3); Red Blood Cell Count 4.03 M/mm3 (4.30-5.90); White Blood Cell Count 10.59 K/mm3 (4.00-11.30)
[2024-04-10 06:43] LABS: Albumin, Blood 2.4 g/dL (3.4-5.0); Albumin/Globulin Ratio 0.7 (0.8-1.8); Bilirubin, Total 0.3 mg/dL (0.1-1.0); Bun/Creatinine Ratio 38.1 (12.0-20.0); Calcium, Blood 8.6 mg/dL (8.5-10.1); Creatinine, Blood 0.68 mg/dL (0.60-1.20); Globulin, Blood 3.5 g/dL (2.2-4.0); Magnesium, Blood 2.2 mg/dL (1.6-2.4); Potassium, Blood 4.2 mmol/L (3.5-5.5); Total Protein, Blood 5.9 g/dL (6.4-8.2)
[2024-04-10 07:46] VITALS: BP 153/91
[2024-04-10] MEDS ORDERED: Azithromycin 250 MG Tab PO SCH (09:00)
[2024-04-10] MEDS ORDERED: Cefepime HCl 2,000 MG in NS 100 ML IV SCH (11:00)
[2024-04-10 15:58] VITALS: BP 107/73
--- NOTE | 2024-04-10 18:23 | NUR ---
SHIFT SUMMARY PT AOX4, SBA FWW. 3L AT REST, 4-5 WITH EXERTION. CALLS AND MAKES HIS NEEDS KNOWN. NO ACUTE CHANGES. DAUGHTER AT THE BS. BREATHING TX'S AVAILABLE. L ARM ELEVATED TO DECREASE SWELLING. CHRONIC LEBLANC IN PLACE, DRAINING AND PATENT. REPOSITIONED THROUGHOUT THE SHIFT. CALL LIGHT WITHIN REACH, BED LOCKED AND IN THE LOWEST POSITION. WILL REPORT TO ONCOMING NURSE.
[2024-04-10 20:15] VITALS: BP 126/77
[2024-04-10] MEDS ORDERED: NS 250 ML IV PRN (21:15)
--- NOTE | 2024-04-11 04:18 | NUR ---
PATIENT IS A04. PATIENT MAKES NEEDS KNOWN. PATIENT 1P ASSIST WITH AMBULATION. PATIENT REPORTED PAIN IN LUQ ABD, NO INTERVENTIONS NEEDED AT TIME. LEBLANC CATHETER IN PLACE. PATIENT WOKE UP AT 0300, THOUGHT IT WAS 0800, LIGHT ON AND PATIENT REORIENTED HIMSELF TO TIME. BED LOCKED IN LOWEST POSITION.
[2024-04-11 04:23] VITALS: BP 141/85
[2024-04-11 05:32] LABS: BASOPHILS ABSOLUTE AUTO 0.04 K/mm3 (0.00-0.23); BASOPHILS PERCENT AUTO 0 % (0-2); EOSINOPHILS ABSOLUTE AUTO 0.01 K/mm3 (0.00-0.68); EOSINOPHILS PERCENT AUTO 0 % (0-6); Hematocrit 34.3 % (37.0-53.0); Hemoglobin 11.3 g/dL (13.5-17.5); IMMATURE GRAN ABSOLUTE AUTO 0.15 K/mm3 (0.00-0.10); IMMATURE GRAN PERCENT AUTO 1 % (0-1); LYMPHOCYTES ABSOLUTE AUTO 2.19 K/mm3 (0.84-5.20); LYMPHOCYTES PERCENT AUTO 20 % (21-46); MONOCYTES ABSOLUTE AUTO 0.79 K/mm3 (0.16-1.47); MONOCYTES PERCENT AUTO 7 % (4-13); Mean Corpuscular HGB 27.9 pg (26.0-34.0); Mean Corpuscular HGB Conc 32.9 g/dL (31.5-36.5); Mean Corpuscular Volume 85 fL (80-100); Mean Platelet Volume 8.5 fL (9.1-12.4); NEUTROPHILS ABSOLUTE AUTO 7.88 K/mm3 (1.96-9.15); NEUTROPHILS PERCENT AUTO 71 % (41-73); Platelet Count 498 K/mm3 (150-400); RDW Coefficient Variation 15.9 % (11.7-14.2); RDW Standard Deviation 48.5 fL (35.1-46.3); Red Blood Cell Count 4.05 M/mm3 (4.30-5.90); White Blood Cell Count 11.06 K/mm3 (4.00-11.30)
[2024-04-11 05:59] LABS: Albumin, Blood 2.4 g/dL (3.4-5.0); Albumin/Globulin Ratio 0.7 (0.8-1.8); Bilirubin, Total 0.3 mg/dL (0.1-1.0); Bun/Creatinine Ratio 42.6 (12.0-20.0); Calcium, Blood 8.4 mg/dL (8.5-10.1); Creatinine, Blood 0.68 mg/dL (0.60-1.20); Globulin, Blood 3.6 g/dL (2.2-4.0); Magnesium, Blood 2.2 mg/dL (1.6-2.4); Potassium, Blood 4.3 mmol/L (3.5-5.5)
[2024-04-11 07:23] VITALS: BP 158/98
[2024-04-11] MEDS ORDERED: PredniSONE 20 MG Tab PO SCH (09:00)
[2024-04-11] MEDS ORDERED: Protein Supplement 30 ML UD PO SCH (09:30)
[2024-04-11 15:44] VITALS: BP 131/77
--- NOTE | 2024-04-11 17:16 | NUR ---
SHIFT SUMMARY PT AOX4, 1 ASSIST WITH THE FWW. LEBLANC IN PLACE, PATENT AND DRAINING. REPOSITIONS THROUGHOUT THE SHIFT. HEARING AIDES CLEANED THIS SHIFT, "BEST FOR HEARING" CAME AND PICKED THE AIDES UP, TOOK THEM TO THEIR STORE, AND CLEANED/REPLACED THE TUBING FOR THE PT. SHE THEN RETURNED THEM TO THE HOSPITAL. THE PT STATES HE CAN HEAR MUCH BETTER AND IS GRATEFUL. NO OTHER ACUTE CHANGES. PT DOES CALL AND MAKE HIS NEEDS KNOWN. CALL LIGHT WITHIN REACH, BED LOCKED AND IN THE LOWEST POSITION. WILLL REPORT TO ONCOMING NURSE.
[2024-04-11 20:36] VITALS: BP 121/77
[2024-04-11] MEDS ORDERED: Azithromycin 250 MG Tab PO SCH (21:30)
[2024-04-12 02:35] VITALS: BP 139/88
--- NOTE | 2024-04-12 05:01 | NUR ---
SHIFT SUMMARY PATIENT IS AOX4. PATIENT IS CALM, AGREEABLE TO CARE, AND IS ABLE TO MAKE HIS NEEDS KNOWN. PATIENT HAS NEW RFA IV. LFA IV WAS D/C'ED. PATIENT HAS LEBLANC CATHETER. IT IS PATENT AND DRAINING TO GRAVITY. PATIENT IS 1P ASSIST. NO ACUTE CHANGES NOTED.
[2024-04-12 05:15] LABS: BASOPHILS ABSOLUTE AUTO 0.02 K/mm3 (0.00-0.23); BASOPHILS PERCENT AUTO 0 % (0-2); EOSINOPHILS ABSOLUTE AUTO 0.05 K/mm3 (0.00-0.68); EOSINOPHILS PERCENT AUTO 0 % (0-6); Hematocrit 34.3 % (37.0-53.0); Hemoglobin 11.3 g/dL (13.5-17.5); IMMATURE GRAN ABSOLUTE AUTO 0.15 K/mm3 (0.00-0.10); IMMATURE GRAN PERCENT AUTO 1 % (0-1); LYMPHOCYTES ABSOLUTE AUTO 2.55 K/mm3 (0.84-5.20); LYMPHOCYTES PERCENT AUTO 21 % (21-46); MONOCYTES ABSOLUTE AUTO 0.93 K/mm3 (0.16-1.47); MONOCYTES PERCENT AUTO 8 % (4-13); Mean Corpuscular HGB Conc 32.9 g/dL (31.5-36.5); Mean Corpuscular Volume 85 fL (80-100); Mean Platelet Volume 8.7 fL (9.1-12.4); NEUTROPHILS ABSOLUTE AUTO 8.19 K/mm3 (1.96-9.15); NEUTROPHILS PERCENT AUTO 69 % (41-73); Platelet Count 443 K/mm3 (150-400); RDW Standard Deviation 49.1 fL (35.1-46.3); Red Blood Cell Count 4.04 M/mm3 (4.30-5.90); White Blood Cell Count 11.89 K/mm3 (4.00-11.30)
[2024-04-12 05:39] LABS: Magnesium, Blood 2.2 mg/dL (1.6-2.4)
[2024-04-12 05:40] LABS: Albumin, Blood 2.4 g/dL (3.4-5.0); Albumin/Globulin Ratio 0.8 (0.8-1.8); Bilirubin, Total 0.4 mg/dL (0.1-1.0); Bun/Creatinine Ratio 45.3 (12.0-20.0); Calcium, Blood 8.3 mg/dL (8.5-10.1); Creatinine, Blood 0.71 mg/dL (0.60-1.20); Globulin, Blood 3.2 g/dL (2.2-4.0); Potassium, Blood 4.4 mmol/L (3.5-5.5); Total Protein, Blood 5.6 g/dL (6.4-8.2)
[2024-04-12 08:32] VITALS: BP 124/73
[2024-04-12 15:08] VITALS: BP 123/81
--- NOTE | 2024-04-12 17:18 | NUR ---
UPDATE: ORDERS PLACED FOR DC. THIS RN PLACED CALL TO DR. MCLEAN EXPRESSING CONCERNS WITH DC. PT SOB WITH STAND-PIVOT TRANSFER AND REQUIRING 10+ MINUTES TO RECOVER. RESPIRATORY THERAPY UNABLE TO DO HOME O2 EVAL DUE TO PT DYSPNIC IN BED. PT STATES HE IS UNABLE TO COORDINATE DISCHARGE HOME THIS LATE IN THE EVNING WITHOUT NOTICE. PT REQUESTING TO STAY THE NIGHT AND DC IN THE AM. MD AGREED TO HOLD DC ORDERS UNTIL 04/13/24. CARE CONTINUES
--- NOTE | 2024-04-12 17:43 | NUR ---
SHIFT NOTE: SEE PREVIOUS NOTE REGARDING DC. PT A/OX4 ABLE TO MAKE HIS NEEDS KNONW. HE IS RESISTANT TO RESPIRATORY CARE EDUCATION. THIS RN ATTEMPTED TO EDUCATE ON THE IMPORTANCE OF USING THE INCENTIVE SPIROMETER AND THE FLUTTER VALVE AND THE PT STATES "YEAH, IT IS NOT GOING TO HAPPEN." HE IS ON 3-4L NC WHICH IS HIS BASELINE BUT CONTINUES TO REPORT SOB WITH LABORED TACHY RESPIRATIONS. HE HAS LOOSE FRAGILE SKIN WITH EDEMA PRESENT ON HIS LOWER LEGS, UPPER LEGS, ELBOWS, AND LOWER FLANK AREA. HE HAS A CHRONIC LEBLANC DRAINING TO GRAVITY. NO BM THIS SHIFT. MEDICATED PER MAY. CARE CONTINUES
[2024-04-12 20:21] VITALS: BP 128/74
[2024-04-12] MEDS ORDERED: Azithromycin 250 MG Tab PO SCH (21:00)
--- NOTE | 2024-04-13 03:48 | NUR ---
SHIFT SUMMARY ADMITTED FOR COPD EXACERBATION. ALSO FOUND TO HAVE BILATERAL PNEUMONIA. UTI+. DNR CODE. IV ANTIB RX ARE SCHEDULED. PLAN IF FOR DC TODAY BACK TO [facility], BUT A HOME O2 EVAL IS NEEDED. CHRONIC LEBLANC IN PLACE. HE IS DYSPNEIC W/EXERTION. BASELINE IS 3-5 LPM O2. HE HAS AREAS OF EDEMA, HOSPITALIST IS AWARE. HIS SKIN IS FRAGILE AND BRUISED BUE. HE IS A PIVOT TRANSFER DUE TO DYSPNEA. SAVOONGA. A&O X4. REGULAR DIET. CONTINUOUS PULSE OX IN PLACE.
[2024-04-13 04:26] VITALS: BP 159/92
[2024-04-13 07:48] VITALS: BP 142/97
--- NOTE | 2024-04-13 16:53 | NUR ---
SHIFT SUMMARY: PATIENT HAS HAD NO NEW ACUTE CHANGES THIS SHIFT. PATIENT A/OX4, LYTTON-WEARS HEARING AID TO BILAT EAR, PLEASANT AND COOPERATIVE c CARE. PATIENT O2 AT BASELINE 3L, SATTING 97%. PATIENT REPORTS SOB c AMBULATION, OTHERWISE, DENIES WHEN RESTING IN BED. PATIENT RECEIVED IV ABX/SCHEDULED MEDS PER EMAR. PATIENT DENIES CP/PRESSURE, N/V AND DIZZINESS. PATIENT HAS GOOD APPETITE, CHRONIC LEBLANC, PATENT DRAINING LIGHT YELLOW URINE TO GRAVITY. PATIENT HAD LARGE BM THIS SHIFT. VITAL SIGNS REVIEWED. VAMSHI DC'D. PATIENT DISCHARGE HOME. DISCHARGE INSTRUCTIONS PACKET GIVEN TO PATIENT AND DAUGHTER. PATIENT AND DAUGHTER EDUCATED ON ADMITTING DX'S OF COPD EXCACERBATION, S/S, TX, SUPPLEMENTAL O2, MEDS AND TO F/U c PCP. PATIENT AND DUAGHTER VERBALIZED UNDERSTANDING AND NO FURTHER QUESTIONS. PATIENT HAS NO NEW RX ORDERED. [facility] [place] DELIVERED PORTABLE O2 IN ROOM. ALL PERSONAL BELONGINGS WERE SENT HOME c THE PATIENT. PATIENT LEFT THE ROOM AT 1653, TRANSPORTED VIA WHEELCHAIR BY ABDELRAHMAN FELIZ TO PATIENT ENTRANCE.
[2024-04-18] MEDS ORDERED: PredniSONE 20 MG Tab PO SCH (09:00)
[2024-04-25] MEDS ORDERED: PredniSONE 10 MG Tab PO SCH (09:00)
== END 2024-04-13 16:00 | disposition home or self-care (01) | DRG 177 ==
LOC: ER 17:38 → SURS 23:22 → MEDS 23:22 → ERHOLD 23:22 → SURS 04-05 00:47 → MEDS 04-09 15:27
PROVIDERS: Family Medicine; Nurse Practitioner Acute Care; Student in an Organized Health Care Education/Training Program; ADMIT Internal Medicine
DX: J69.0 Pneumonitis due to inhalation of food and vomit (principal); J96.21 Acute and chronic respiratory failure with hypoxia; J44.0 Chronic obstructive pulmonary disease with (acute) lower respiratory infection; J44.1 Chronic obstructive pulmonary disease with (acute) exacerbation; N39.0 Urinary tract infection, site not specified; E87.20 Acidosis, unspecified; S39.82XA Other specified injuries of lower back, initial encounter; X58.XXXA Exposure to other specified factors, initial encounter; N40.0 Benign prostatic hyperplasia without lower urinary tract symptoms; I10 Essential (primary) hypertension; Z87.19 Personal history of other diseases of the digestive system; H91.90 Unspecified hearing loss, unspecified ear; Z66 Do not resuscitate; B37.9 Candidiasis, unspecified; Z99.81 Dependence on supplemental oxygen; Z79.899 Other long term (current) drug therapy; Z90.49 Acquired absence of other specified parts of digestive tract; Z98.52 Vasectomy status; Z98.890 Other specified postprocedural states; Z87.891 Personal history of nicotine dependence; Z98.49 Cataract extraction status, unspecified eye
CPT/HCPCS: 0241U; 36415; 51702; 71045; 76882; 80048; 80053; 80069; 81001; 82803; 83605; 83735; 83880; 84145; 84484; 85025; 85027; 87040; 87086; 93005; 93010; 94640; 94664; 94760; 94762; 97110; 97162; 97165; 97530; 99285-25; A9270; J0456; J0692; J0696; J1650; J2919; J7030; J7050; J7512

== ENCOUNTER 2024-04-28 13:10 | Inpatient (IN) | payer MEDICARE ==
[~2024-04-28] VITALS: Ht 170.2 cm; Wt 60.0 kg
[2024-04-28] MEDS ORDERED: PRED5 PO (13:29)
[2024-04-28 13:36] LABS: BASOPHILS ABSOLUTE AUTO 0.06 K/mm3 (0.00-0.23); BASOPHILS PERCENT AUTO 1 % (0-2); EOSINOPHILS ABSOLUTE AUTO 0.25 K/mm3 (0.00-0.68); EOSINOPHILS PERCENT AUTO 3 % (0-6); Hematocrit 33.7 % (37.0-53.0); Hemoglobin 10.8 g/dL (13.5-17.5); IMMATURE GRAN ABSOLUTE AUTO 0.04 K/mm3 (0.00-0.10); IMMATURE GRAN PERCENT AUTO 0 % (0-1); LYMPHOCYTES ABSOLUTE AUTO 1.95 K/mm3 (0.84-5.20); LYMPHOCYTES PERCENT AUTO 22 % (21-46); MONOCYTES ABSOLUTE AUTO 0.69 K/mm3 (0.16-1.47); MONOCYTES PERCENT AUTO 8 % (4-13); Mean Corpuscular HGB 28.1 pg (26.0-34.0); Mean Corpuscular Volume 88 fL (80-100); Mean Platelet Volume 8.3 fL (9.1-12.4); NEUTROPHILS ABSOLUTE AUTO 6.01 K/mm3 (1.96-9.15); NEUTROPHILS PERCENT AUTO 67 % (41-73); Platelet Count 429 K/mm3 (150-400); RDW Coefficient Variation 16.4 % (11.7-14.2); RDW Standard Deviation 52.5 fL (35.1-46.3); Red Blood Cell Count 3.85 M/mm3 (4.30-5.90)
[2024-04-28] MEDS ORDERED: Piperacillin/Tazobactam Sod 3.375 GM in NS 100 ML IV ONE (13:50)
[2024-04-28] MEDS ORDERED: Lactated Ringer's 500 ML IV ONE (13:50)
[2024-04-28 13:54] LABS: CORONAVIRUS COVID-19 AG Negative (NEGATIVE); INFLUENZA A AG Negative (NEGATIVE); INFLUENZA B AG Negative (NEGATIVE)
[2024-04-28] MEDS ORDERED: Ipratropium Bromide INH 0.02% 0.5 mg/2.5ML Vial INH SCH (13:55)
[2024-04-28] MEDS ORDERED: MethylPREDNISolone Sod Succ 125 MG Vial IV ONE (13:55)
[2024-04-28] MEDS ORDERED: Albuterol 2.5 MG/3 ML VIAL INH SCH (13:55)
[2024-04-28 13:57] LABS: Albumin, Blood 2.5 g/dL (3.4-5.0); Albumin/Globulin Ratio 0.7 (0.8-1.8); Bilirubin, Total 0.2 mg/dL (0.1-1.0); Bun/Creatinine Ratio 19.9 (12.0-20.0); Calcium, Blood 8.5 mg/dL (8.5-10.1); Creatinine, Blood 0.76 mg/dL (0.60-1.20); Globulin, Blood 3.6 g/dL (2.2-4.0); Total Protein, Blood 6.1 g/dL (6.4-8.2)
[2024-04-28] MEDS ORDERED: Lactated Ringer's 1,000 ML IV ONE (15:05)
[2024-04-28] MEDS ORDERED: Azithromycin 500 MG in NS 250 ML IV ONE (16:00)
[2024-04-28] MEDS ORDERED: FLU VACC TS2024-25(6MOS UP)/PF 45 MCG/0.5 ML SYRINGE IM PRN (17:05)
[2024-04-28] MEDS ORDERED: Ipratropium/Albuterol SulF 2.5-0.5MG/3 ML Amp INH SCH (17:20)
[2024-04-28] MEDS ORDERED: Albuterol 2.5 MG/3 ML VIAL INH PRN (17:20)
[2024-04-28 17:48] LABS: Base Excess Venous -3.8 mmol/L; Bicarbonate Venous 21.9 mmol/L (24.0-30.0); PCO2 Venous 28.6 mmHg (38-42); pH Blood Venous 7.46 (7.34-7.37)
[2024-04-28] MEDS ORDERED: MethylPREDNISolone Sod Succ 125 MG Vial IV SCH (18:00)
[2024-04-28] MEDS ORDERED: Piperacillin/Tazobactam Sod 3.375 GM in NS 100 ML IV SCH (20:00)
[2024-04-28 20:59] VITALS: BP 154/87
[2024-04-28] MEDS ORDERED: Lactobacil 2-S.Thermo-Bifido 1 1 Cap PO SCH (21:00)
[2024-04-28] MEDS ORDERED: Tamsulosin HCl 0.4 MG Cap PO SCH (21:00)
[2024-04-28 23:31] VITALS: BP 131/90
[2024-04-29 03:46] VITALS: BP 119/86
[2024-04-29 04:18] LABS: BASOPHILS ABSOLUTE AUTO 0.01 K/mm3 (0.00-0.23); BASOPHILS PERCENT AUTO 0 % (0-2); EOSINOPHILS PERCENT AUTO 0 % (0-6); Hematocrit 29.8 % (37.0-53.0); Hemoglobin 9.8 g/dL (13.5-17.5); IMMATURE GRAN ABSOLUTE AUTO 0.02 K/mm3 (0.00-0.10); IMMATURE GRAN PERCENT AUTO 0 % (0-1); LYMPHOCYTES ABSOLUTE AUTO 0.94 K/mm3 (0.84-5.20); LYMPHOCYTES PERCENT AUTO 16 % (21-46); MONOCYTES ABSOLUTE AUTO 0.05 K/mm3 (0.16-1.47); MONOCYTES PERCENT AUTO 1 % (4-13); Mean Corpuscular HGB 28.4 pg (26.0-34.0); Mean Corpuscular HGB Conc 32.9 g/dL (31.5-36.5); Mean Corpuscular Volume 86 fL (80-100); Mean Platelet Volume 8.7 fL (9.1-12.4); NEUTROPHILS ABSOLUTE AUTO 4.87 K/mm3 (1.96-9.15); NEUTROPHILS PERCENT AUTO 83 % (41-73); Platelet Count 398 K/mm3 (150-400); RDW Coefficient Variation 16.2 % (11.7-14.2); RDW Standard Deviation 51.1 fL (35.1-46.3); Red Blood Cell Count 3.45 M/mm3 (4.30-5.90); White Blood Cell Count 5.89 K/mm3 (4.00-11.30)
[2024-04-29 04:51] LABS: Bun/Creatinine Ratio 25.1 (12.0-20.0); Calcium, Blood 8.3 mg/dL (8.5-10.1); Creatinine, Blood 0.56 mg/dL (0.60-1.20); Potassium, Blood 3.8 mmol/L (3.5-5.5)
--- NOTE | 2024-04-29 06:14 | NUR ---
SHIFT SUMMARY PT REMAINS A&OX4. VSS WEENED DOWN TO 1L NC STATTING 99%. EVEN THOUGH REPORTS BASELINE O2 OF 5L? PT ON TELE NSR 80s-100s. PT DENIES PAIN OR SOB AT THIS TIME. PT GIVEN STEROIDS AND ABX THROUGHOUT NIGHT ALONG WITH PRN BREATHING TXs. PT ARRIVED FROM ED @ 2049. CAME IN WITH BLE WOUNDS R>L. ALONG WITH OPEN SORE ON COCCYX. PICTURES IN CHART. ARRIVED ON TELE ST WITH HR IN 110-120s. PT VERY WEAK IN BED AND UNABLE TO ASSIST WITH TURNS, Q2HR TURNS UTILIZED. PT VERY HARD OF HEARING EVEN WITH HEARING AIDS IN. HOWEVER WAS ABLE TO CONVERSE, FOLLOW COMMANDS APPROPRIATELY. CHRONIC LEBLANC REMAINS INTACT. CLEANED AND REMAINS PATENT DRAINING WITH GRAVITY WITH GOOD OUPUT. NO FURTHER QUESTIONS OR CONCERNS AT THIS TIME. WILL REPORT TO ONCOMING NURSE.
[2024-04-29 08:01] VITALS: BP 134/78
[2024-04-29] MEDS ORDERED: Enoxaparin 40 MG/0.4 ML SYR SC SCH (09:00)
--- NOTE | 2024-04-29 09:00 | NUR ---
AM NOTE: PATIENT ALERT AND ORIENTED X4. PERRLA, WEARING GLASSES. UPPER AND PARTIAL LOWER DENTURES IN PLACE. ABLE TO MOVE ALL EXTREMITIES, ALTHOUGH VERY WEAK AND SOB UPON MOVEMENT,TALKING AND EATING. PATIENT STATES HE USES WALKER AT [facility] BUT HAS BEEN IN BED RECENTLY. CAREGIVER JONATHON UPDATED THIS AM BY THIS RN. Q2 TURNING AND NEEDED. TELE SHOWING SR/ST WITH HR 90-110'S. DENIES CHEST PAIN/PRESSURE/PALPITATIONS. EDEMA TO BLE. PPP. IV SALINE LOCKED. ON 2L NASAL CANNULA SATING MID 90'S. SOB WITH ANY EXCERTION. LUNG SOUNDS COARSE THROUGHOUT. OCCASIONAL MOIST COUGH WITH GREEN/YELLOW SPUTUM. PATIENT REPORTS USING 4.5 L AT HOME RECENTLY. BOWEL TONES PRESENT THROUGHOUT. TOLERATING PO DIET. ATTENDS IN PLACE. CHRONIC LEBLANC CATH CHANGED THIS SHIFT AND DRAINING YELLOW URINE TO GRAVITY. DENIES ABDOMINAL PAIN/NAUSEA. SKIN OVERALL FRAGILE WITH SCATTERED BRUISING AND SCABS. BLE REDNESS WITH RIGHT DAHL BLOOD BLISTER. CALL LIGHT IN REACH.
[2024-04-29] MEDS ORDERED: AMLO5 PO (10:02)
--- NOTE | 2024-04-29 10:29 | NUR ---
CAREGIVER CONTACT NUMBER/CHRONIC FC INFORMATION: Britt: [phone] Pt gets FC changed at [facility] in [place] (staff member at office changes indewelling cath w/o difficulty, not required for urologist specific change). Unknown last date of change but appointment scheduled for Monday 05/01 for new catheter placement. Informed caregiver that FC would be changed today in hospital.
[2024-04-29 11:57] VITALS: BP 121/70
[2024-04-29 14:32] VITALS: BP 118/77
--- NOTE | 2024-04-29 14:56 | NUR ---
DR. TAN BY THIS AFTERNOON. IV LASIX GIVEN. THIS RN SPOKE WITH CAREGIVER JONATHON AND SHE PLANS ON BRINGING IN HEARING AID BATTERIES. VITAL SIGNS STABLE. UP TO BSC WITH 2 PERSON ASSIST. SMALL BOWEL MOVEMENT. PATIENT VERY TIRED AND WEAK AFTER GETTING UP TO BSC.
[2024-04-29] MEDS ORDERED: Furosemide 10 MG / ML 2ML Vial IV ONE (15:00)
[2024-04-29 15:42] VITALS: BP 114/75
[2024-04-29] MEDS ORDERED: Azithromycin 500 MG in NS 250 ML IV SCH (16:00)
--- NOTE | 2024-04-29 18:21 | NUR ---
SHIFT SUMMARY: NO ACUTE CHANGES. PATIENT REMAINS ALERT AND ORIENTED X4. HEARING AID BATTERIES BROUGHT IN BY CAREGIVER. REMAINS IN SR/ST WITH PVC'S. HR 90-100'S. DENIES PAINS. CONTINUES TO BE SOB WITH TALKING AND EATING. UP TO BSC X1 TODAY FOR BOWEL MOVEMENT. LEBLANC CATH REMAINS IN PLACE. IV LASIX GIVEN X1 THIS AFTERNOON. REMAINS ON 2-2.5L O2 VIA NASAL CANNULA. TOLERATING PO DIET. BILATERAL LOWER EXTREMITIES REMAIN RED, EDEMATOUS AND WARM. IV ABX INFUSED. CALL LIGHT IN REACH.
[2024-04-29 20:05] VITALS: BP 124/81
[2024-04-29] MEDS ORDERED: Tamsulosin HCl 0.4 MG Cap PO SCH (21:00)
[2024-04-30 00:02] VITALS: BP 136/94
[2024-04-30 04:18] VITALS: BP 115/79
--- NOTE | 2024-04-30 04:42 | NUR ---
SHIFT SUMMARY PT REMAINS A&OX4. VSS ON 1L NC WHEN SLEEPING. PT ABLE TO USE FWW X1-2A TO BSC HOWEVER VERY WEAK. X1 BM THIS EVENING. PT REMAINS SR W/ PVCs HR 80s-100s. PT TURNED Q2HR. MEPILEX PLACED ON R DAHL BLISTER FOR PROTECTION. NO FURTHER QUESTIONS OR CONCERNS AT THIS TIME. CALL AGUILA WITHIN REACH. WILL REPORT TO ONCOMING NURSE.
[2024-04-30 05:10] LABS: BASOPHILS PERCENT AUTO 0 % (0-2); EOSINOPHILS PERCENT AUTO 0 % (0-6); Hemoglobin 9.7 g/dL (13.5-17.5); IMMATURE GRAN ABSOLUTE AUTO 0.05 K/mm3 (0.00-0.10); IMMATURE GRAN PERCENT AUTO 1 % (0-1); LYMPHOCYTES ABSOLUTE AUTO 2.11 K/mm3 (0.84-5.20); LYMPHOCYTES PERCENT AUTO 24 % (21-46); MONOCYTES ABSOLUTE AUTO 0.75 K/mm3 (0.16-1.47); MONOCYTES PERCENT AUTO 9 % (4-13); Mean Corpuscular HGB 27.8 pg (26.0-34.0); Mean Corpuscular HGB Conc 32.3 g/dL (31.5-36.5); Mean Corpuscular Volume 86 fL (80-100); Mean Platelet Volume 8.7 fL (9.1-12.4); NEUTROPHILS ABSOLUTE AUTO 5.91 K/mm3 (1.96-9.15); NEUTROPHILS PERCENT AUTO 67 % (41-73); Platelet Count 428 K/mm3 (150-400); RDW Coefficient Variation 16.1 % (11.7-14.2); RDW Standard Deviation 50.6 fL (35.1-46.3); Red Blood Cell Count 3.49 M/mm3 (4.30-5.90); White Blood Cell Count 8.82 K/mm3 (4.00-11.30)
[2024-04-30 05:33] LABS: Albumin, Blood 2.2 g/dL (3.4-5.0); Anion Gap 8 mmol/L (3-11); Blood Urea Nitrogen 18 mg/dL (8-24); Bun/Creatinine Ratio 21.7 (12.0-20.0); CO2, Blood 28 mmol/L (21-32); Calcium, Blood 8.5 mg/dL (8.5-10.1); Chloride, Blood 104 mmol/L (98-108); Creatinine, Blood 0.83 mg/dL (0.60-1.20); Glomerular Filtration Rate 84 (60-); Glucose, Blood 103 mg/dL (70-99); Potassium, Blood 3.8 mmol/L (3.5-5.5); Sodium, Blood 136 mmol/L (136-145)
--- NOTE | 2024-04-30 07:30 | NUR ---
PCU ASSUMPTION OF CARE: THIS RN TO ASSUME CARE OF PT AFTER REPORT FROM NOC RN. UPON THIS RN ENTRANCE INTO ROOM PT SLEEPY AXO 3 BUT REDIRECTABLE TO SITUATION. PT AWOKE THINKING HE WAS IN CARE FACILITY AT [facility]. PT IS DENYING ANY C/P. B/P STABLE AND HR 88BPM WITH FREQUENT PVCS. PT IS ON 1L N/C SATTING 97%. HE HAS DIMINSHED BRETAH SOUNDS WITH PNEUMONIA SEEN ON R MIDDLE LOBE. DENIES ABD PAIN AND NO DISTENTION. HE IS WEAK WITH TRANSFER TO BEDSIDE COMMODE. REDNESS TO BLE. CHRONIC LEBLANC, DRAINING TO GRAVITY. 20G IV TO L WRIST. RECEIVING PO PREDNISONE. PT IS PLESANT AND COOPERATIVE, EXTREMELY [place]. CALL LIGHT IN REACH AND DENIES CURRENT NEEDS.
[2024-04-30] MEDS ORDERED: PredniSONE 20 MG Tab PO SCH (09:00)
[2024-04-30 09:07] VITALS: BP 116/84
[2024-04-30 11:28] VITALS: BP 102/66
[2024-04-30 15:38] VITALS: BP 115/70
[2024-04-30] MEDS ORDERED: Piperacillin/Tazobactam Sod 3.375 GM in NS 100 ML IV SCH (16:00)
--- NOTE | 2024-04-30 17:39 | NUR ---
PCU DAY SHIFT SUMMARY: PT REMAINED STABLE T/O THE DAY WITH NO ACUTE CHNAGES IN STATUS. HE RECEIVED IV ABX FOR PNEUMONIA AND WAS STABLE ON 1L N/C SATTING >95%. LUNG SOUNDS DIMINISHED. HE DENIED ANY C/P. ALL VSS. HE HAD VISIT FROM SON. HE HAD LWR IV DCD D/T REDNESS AND SWELLING. NEW 20G PLACED TO ENEIDA. IV ABX FLOWING W/O COMPLAINTS. PT ATE HIS MEALS W/O C/O N/V. CATH DRAINED 260MLS BUT BLADDER SCAN REVEALED ONLY 77MLS. PT REMAINS PLESANT AND COOPERATIVE WITH STAFF. WILL CONTINUE TO CARE FOR PT UNTIL REPORT TO SHAGGY GRANADO.
[2024-04-30 19:57] VITALS: BP 111/78
--- NOTE | 2024-04-30 20:20 | NUR ---
ASSUMED CARE PT IS A&O X4; SPO2 >92% ON 1L NC; MAP >65; RATE 90'S. DENIES CP, SOB, AND NAUSEA AT THIS TIME. NO C/O OF PAIN AT THIS TIME. RESTING QUIETLY AT THIS TIME.
[2024-05-01] VITALS: BP 137/92
[2024-05-01 03:28] VITALS: BP 133/86
[2024-05-01 07:42] VITALS: BP 121/86
[2024-05-01 11:02] VITALS: BP 122/90
[2024-05-01 15:56] VITALS: BP 125/59
--- NOTE | 2024-05-01 16:30 | NUR ---
Spoke to pt's son Jourdan by phone this afternoon. Unable to reach pt's daughter Sandra today, Jourdan states she is currently in [place] for work. Discussed the pt's health status with Jourdan, he states he's beginning to think it may be time for him and Sandra to discuss hospice with the patient. He states he will talk with Sandra and we can chat more tomorrow. Plan to speak with the patient tomorrow as well.
--- NOTE | 2024-05-01 16:58 | NUR ---
shift summary NO ACUTE CHANGES THIS SHIFT. MEDICAL TELE STATUS. PT A&OX4. SP02>90% ON 1L NC. SOB W/ ANY EXERTION. TELEMETRY SHOWS SINUS TACH W/ PVC, HR 100-130'S. REFUSED PT/OT D/T SOB. LEBLANC CATHETER DRAINING TO GRAVITY. PT UP TO BSC 1P FWW TO HAVE BM. PT STATES ACTIVITY 'TOOK IT OUT OF ME' AND NAPPED THIS AFTERNOON. PT WATCHING TV IN ROOM, CALL LIGHT IN REACH.
[2024-05-01] MEDS ORDERED: Metoprolol Tartrate 25 MG Tab PO SCH (21:00)
[2024-05-01 21:03] VITALS: BP 138/86
[2024-05-02 00:24] VITALS: BP 147/98
--- NOTE | 2024-05-02 05:40 | NUR ---
SHIFT SUMMARY PT HAS RESTED T/O THE NIGHT, DENIES PAIN. IV ANTIBIOTICS CONTINUED FOR CELLULITIS. BLE WITH EDEMA, LOWER EXT RED AND WARM TO TOUCH. LEGS ELEVATED ON PILLOWS. LUNGS ARE COURSE IN THE BASES WITH WHEEZES. SEVERE COPD. PT BECOMES VERY SOB WITH MINIMAL ACTIVITY, EVEN EATING. NO SWALLOWING ISSUES OR DYSPHAGIA. HOWEVER D/T HIS COPD PT BECAME VERY SOB WITH MED PASS WHEN TAKING HIS MEDICATION WITH PUDDING. PT REPORTS THAT THIS HAPPENS OFTEN AND THAT HE HAS TO EAT VERY SLOWLY TO AVOID GETTING SOB. IT TOOK PT SEVERAL MINUTES TO RECOVER AFTER TAKING A COUPLE BITS OF PUDDING WITH HIS MEDICATION. THE REST OF PT HS MEDS HELD PER CLINICAL JUDGMENT. VITALS ARE STABLE. PT RESTS IN BED WITH LEBLANC PATENT AND DRAINING. BED IN LOWEST POSITION, CALL LIGHT WITHIN REACH.
[2024-05-02 06:13] VITALS: BP 150/92
[2024-05-02 07:38] VITALS: BP 145/99
--- NOTE | 2024-05-02 10:54 | NUR ---
AM NOTE: ALERT AND ORIENTED X4. FORGETFUL AT TIMES. HARD OF HEARING. 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 PERRLA, GLASSES IN PLACE. MOVING ALL EXTREMITIES IN BED, ALTHOUGH VERY WEAK AND DECONDITIONED. Q2 TURNING AND NEEDED. TELE SHOWING ST WITH PVC/PACS. HR 100'S. SBP 150'S. DENIES CHEST PAIN/PRESSURE/PALPITATIONS. EDEMA TO BLE. IV SALINE LOCKED. ON 1-2L NASAL CANNULA SATING MID 90'S. LUNG SOUNDS DIMINISHED. MINIMAL AIR MOVEMENT. PATIENT SOB WITH ANY TALKING, EATING OR MOVING AROUND. BOWEL TONES PRESENT. TOELRATING PO DIET. ATTENDS IN PLACE. CHRONIC LEBLANC CATH IN PLACE. CATH CARE COMPLETED THIS AM. DENIES ABDOMINAL PAIN/NAUSEA. DENTURES IN PLACE, CLEANED THIS AM. SKIN OVERALL PALE, DRY AND FRAGILE. SEE WOUND CARE ORDERS FOR PRESSURE SORE ON COCCYX. DRESSING CHANGED PER ORDERS. BLE REDNESS WITH BLOOD BLISTER ON RLE. SEE CHART PHOTOS. CALL LIGHT IN REACH. PATIENT DENIES NEEDS AT THIS TIME.
[2024-05-02 11:34] VITALS: BP 126/84
--- NOTE | 2024-05-02 14:44 | NUR ---
CALLED AND GOT REPORT FROM LUZ GRANADO IN PCU.
--- NOTE | 2024-05-02 15:00 | NUR ---
TRANSFER TO MED FLOOR: WOMEN'S GARMENT FITTER REPORTED OFF TO FLOOR NURSE AND PATIENT MOVED TO MED FLOOR WITH ALL PERSONAL BELONGINGS AND CHART. NO ACUTE CHANGES. VITAL SIGNS STABLE. CAREGIVER UPDATED.
[2024-05-02 15:01] VITALS: BP 117/73
--- NOTE | 2024-05-02 15:40 | NUR ---
PATIENT ARRIVED TO THE UNIT VIA BED, PATIENT ALERT AND INTERACTING WITH STAFF, PATIENT ON 2 L N/C AND SETTLED IN ROOM.
[2024-05-02] MEDS ORDERED: NS 250 ML IV PRN (15:50)
[2024-05-02] MEDS ORDERED: Piperacillin/Tazobactam Sod 3.375 GM in NS 100 ML IV SCH (16:00)
--- NOTE | 2024-05-02 16:34 | NUR ---
SKIN CHECKED WITH WILBERT GRANADO; SKIN FINDS SAME REPORT/ASSESSMENT. PATIENT IN BED, CALL LIGHT WITHIN REACH, NO SIGNS OR SYMPTOMS OF DISTRESS, PLAN OF CARE ONGOING.
[2024-05-02 19:15] VITALS: BP 123/92
[2024-05-03] MEDS ORDERED: Piperacillin/Tazobactam Sod 3.375 GM in NS 100 ML IV SCH
[2024-05-03 04:27] VITALS: BP 158/106
--- NOTE | 2024-05-03 05:26 | NUR ---
SHIFT SUMMARY PATIENT HAD NO ACUTE CHANGES. AXOX 3, MODOC, AND FORGETFUL AT TIMES. TWO ASSIST W/FWW TO BSC. TAKES MEDICATION WHOLE IN APPL E SAUCE. PIV INTACT. IV ABX INFUSED. ON 2L O2 NC. DENIES CHEST PAIN, SOB, AND N/V. VSS/AFEBRILE. LEBLANC PATENT AND DRAINING TO GRAVITY. CALL LIGHT IN REACH. BED IN LOWEST POSITION. WILL CONTINUE TO MONITOR UNTIL DAY SHIFT NURSE ASSUMES CARE.
[2024-05-03 07:27] VITALS: BP 163/98
[2024-05-03] MEDS ORDERED: Miconazole Nitrate 2% 85 GM PWD TOP SCH (09:00)
[2024-05-03 15:39] VITALS: BP 141/87
--- NOTE | 2024-05-03 17:47 | NUR ---
SHIFT SUMMARY: NO EVENTS OR CHANGES WITH THE PATIENT THROUGHOUT THE SHIFT. HE HAS REMAINED IN BED, CALL LIGHT WITHIN REACH, NO SIGNS OR SYMPTOMS OF DISTRESS, PLAN OF CARE ONGOING. (DISCUSSED RESTARTING BLOOD PRESSURE MEDICATIONS BACK UP WITH DR. TAN THIS MORNING DURING ROUNDS) NO NEW ORDERS AT THIS TIME. PATIENT REPORTS THAT HIS DAUGHTER WILL BE HOME SOON-TRAVELING BACK TO [place] FROM [place].
[2024-05-03 19:34] VITALS: BP 131/95
[2024-05-04 04:31] VITALS: BP 158/85
--- NOTE | 2024-05-04 05:05 | NUR ---
Patient had no acute changes. AXO X3, EKWOK, forgetful at times. Two assist w/FWW to BSC. Takes medication whole with applesauce. PIV intact. IV ABX infused. ON 2L O2 NC. Denies chest pain, SOB and N/V. VSS/afebrile. Willson patient and draining to gravity. Call light with in reach, bed in the lowest position. Will continue to monitor until day shift resumes cares.
[2024-05-04] MEDS ORDERED: AmLODIPine Besylate 5 MG Tab PO SCH (09:00)
--- NOTE | 2024-05-04 09:46 | NUR ---
PATIENT EXPRESSED TO THIS RN THAT HE DOES NOT WISH TO TAKE HIS MEDICATIONS. HE EXPRESSED THAT HE DOESN'T SEE THE POINT ANYMORE AND THAT HE SAID "LET'S STOP PRETENDING." "IT IS TIME TO FACE A LIFE OR SITUATION." I SPOKE WITH THE PATIENT ABOUT ALL OF HIS MEDICATIONS AND REASONINGS AND HE WISHES TO NOT GET THEM. I DISCUSSED WITH THE PATIENT HE WOULD LIKE TO TAKE A MORE COMFORTA APPROACH TO CARE VERSUS MEDICAL/TREATMENT AND HE STATED THAT HE WOULD NEED TO THINK ON IT. HE STATES THAT THE PLAN IS TO BE HOME IN A DAY OR TWO HAVE SOMEONE WATCH OVER HIM FOR A COUPLE OF DAYS. PATIENT REPORTS THAT HE IS "FINE" DENIES PAIN. THIS INTERACT WAS SHARED WITH PALLATIVE CARE.
[2024-05-04] MEDS ORDERED: Morphine Sulfate 20 MG/1ML 1 ML Oral Syringe SL PRN (12:05)
[2024-05-04] MEDS ORDERED: Scopolamine Hydrobromide Patch TOP PRN (12:05)
[2024-05-04] MEDS ORDERED: LORazepam 1 MG Tab PO PRN (12:05)
[2024-05-04] MEDS ORDERED: Ondansetron HCl 2 MG / ML 2ML Vial IV PRN (12:05)
[2024-05-04] MEDS ORDERED: Acetaminophen 325 MG TABLET PO PRN (12:10)
[2024-05-04] MEDS ORDERED: ACET325 PO (13:10)
[2024-05-04] MEDS ORDERED: Ativan1 MG PO (13:11)
[2024-05-04] MEDS ORDERED: MORP20L PO (13:15)
[2024-05-04] MEDS ORDERED: TRANSDERM-SCOP1 EA13 TD (13:16)
[2024-05-04] MEDS ORDERED: ONDA4ODT MM (13:16)
--- NOTE | 2024-05-04 16:43 | NUR ---
DISCHARGE NOTE: WENT OVER DISCHARGE WITH PATIENT AND HIS SON, PATIENT'S IV REMOVED, AND BELONGINGS COLLECTED BY SON. WHEELCHAIR MEDICAL TRANSPORT ARRIVED AND PATIENT WAS LIFTED INTO THE WHEELCHAIR WITH ROOM LIFT. PATIENT WHEELED DOWN BY MEDICAL TRANSPORTER AND SON. NO SIGNS OR SYMPTOMS OF DISTRESS DURING DISCHARGE.
--- NOTE | 2024-05-04 17:49 | NUR ---
MET WITH PATIENT. HE RELAYED THAT HE WAS DONE TAKING MEDICATION AND WANTED TO GO HOME. HE HAD A PLAN IN PLACE TO GO HOME WITH HOSPICE BUT HE WANTS TO LEAVE TODAY. DISCUSSED WITH CARE COORDINATION. DISCUSSED WITH SON MARCI WHO CAME TO PICK PATIENT UP. DISCUSSED WITH PROVIDER. PATIENT DISCHARGED THIS AFTERNOON.
== END 2024-05-04 16:40 | disposition hospice, home (50) | DRG 871 ==
LOC: ER 13:10 → ERHOLD 17:52 → PCU 17:52 → MEDS 05-01 19:56 → PCU 05-01 20:02 → MEDS 05-02 14:55
PROVIDERS: Emergency Medicine; Family Medicine; Student in an Organized Health Care Education/Training Program; ADMIT Family Medicine
DX: A41.9 Sepsis, unspecified organism (principal); J18.9 Pneumonia, unspecified organism; J96.21 Acute and chronic respiratory failure with hypoxia; L03.116 Cellulitis of left lower limb; L03.115 Cellulitis of right lower limb; J44.0 Chronic obstructive pulmonary disease with (acute) lower respiratory infection; J44.1 Chronic obstructive pulmonary disease with (acute) exacerbation; R65.20 Severe sepsis without septic shock; Z66 Do not resuscitate; Z51.5 Encounter for palliative care
CPT/HCPCS: 36415; 71045; 73701; 80048; 80053; 80069; 82803; 83605; 83880; 84484; 85025; 87040; 87428-QW; 93005; 93010; 94640; 94664; 94760; 94762; 96361; 96365-59; 96375; 99285-25; A9270; J0456; J1650; J1940; J2543; J2919; J7050; J7120; J7512; Q9967